=== PATIENT | female | born 1935 | race Caucasian/White ===

== ENCOUNTER 2018-03-31 04:35 | Inpatient (IN) ==
--- NOTE | 2018-03-31 05:42 | Emergency Department Note ---
Disposition Clinical Impression: Palpitations, Elevated troponin Disposition: Admitted As Inpatient Condition: Good Forms: ED Satisfaction Letter Time of Disposition: 06:51 Arrhythmia/Palpitations HPI - General Chief Complaint: ED Arrhythmia/Palpitations Stated Complaint: heart palpitations Time Seen by Provider: 03/31/18 04:46 Source: patient, family Mode of arrival: ambulatory Limitations: no limitations Nursing Notes Reviewed: Yes Vital Signs Reviewed: Yes - History of Present Illness HPI Narrative: Patient is an 83-year-old female presenting with palpitations. Patient has history of hypertension, hyperlipidemia as well as diabetes and anxiety. Per patient around 3:30 this morning, she woke up out of bed with this feeling of quivering in her chest, she states that there was pounding in the middle of her chest. She denies any pressure in her chest or difficulty breathing. She denies any lightheaded or dizziness. She immediately woke up and took her blood pressure as well as pulse, she noticed her pulse was in the 150s. This lasted until around 4:00, and resolved on its own. On arrival, she has no palpitations, no chest pain or shortness of breath. She denies any lightheaded or dizziness. She denies any history of abnormal heart rhythms. She denies symptoms like this in the past. She does have history of anxiety and has anxiety attacks at night, however this is significantly different. She also recently had a stressor as her sister a few days ago. No nausea, vomiting, fevers, chills, cough or abdominal pain, no urinary changes. - Related Data Allergies Allergy/AdvReac Type Severity Reaction Status Date / Time Amoxicillin Allergy Hives Verified 03/31/18 04:39 ampicillin Allergy Hives Verified 03/31/18 04:39 Penicillins [PCN] Allergy Hives Verified 03/31/18 04:39 sulfamethoxazole Allergy Hives Verified 03/31/18 04:39 [From Bactrim] trimethoprim [From Bactrim] Allergy Hives Verified 03/31/18 04:39 All systems ED: reviewed and negative except as stated. Review of Systems: As Per HPI Constitutional: Denies: fever, chills, weakness, weight change Eyes: Denies: eye pain, eye discharge, vision change ENT ED: Denies: ear pain, throat pain, dental pain, hearing loss, epistaxis, congestion, dysphagia Cardiovascular: Reports: palpitations. Denies: chest pain, dyspnea on exertion Respiratory: Denies: cough, dyspnea, wheezes Gastrointestinal: Denies: abdominal pain, nausea, vomiting Genitourinary: Denies: urgency, frequency Musculoskeletal: Denies: back pain Integumentary: Denies: rash Neurological: Denies: headache, weakness, confusion Psychiatric: Reports: anxiety Endocrine: Denies: fatigue Past Medical History - Past Medical History Attestation: Yes The following information was validated with the patient. Source: patient Medical history: Reports: asthma, diabetes, GERD, hypertension, thyroid disease Surgical history: Reports: hysterectomy, thyroidectomy, other Psychiatric history: Reports: anxiety - Social History Smoking Status: Never smoker Smokeless Tobacco Status: No Alcohol use: Reports: none Drug use: Reports: none Physical Exam - General Limitations: no limitations General appearance: alert, in no apparent distress - Head Head exam: atraumatic, normocephalic, normal inspection - Eye Eye exam: Present: normal appearance, PERRL, EOMI - ENT ENT exam: normal exam, normal oropharynx, mucous membranes moist - Neck Neck exam: Present: normal inspection, full ROM, trachea midline - Chest Chest inspection: Present: normal inspection, symmetric chest wall rise - Respiratory Respiratory exam: Present: normal lung sounds bilaterally - Cardiovascular Cardiovascular exam: Present: regular rate, normal rhythm, normal heart sounds - Abdominal Exam Abdominal exam: Present: soft, Non-Tender. Absent: tenderness, distention, guarding, rebound, rigidity - Extremities Exam Extremities exam: Present: normal inspection, full ROM. Absent: tenderness, pedal edema - Expanded Lower Extremity Exam Neurovascular/Tendon exam: Absent: motor deficit, sensory deficit, tendon deficit - Back Exam Back exam: Present: normal inspection, full ROM. Absent: tenderness - Neurological Exam Neurological exam: Present: alert, oriented X3 - Psychiatric Psychiatric exam: Present: normal affect, normal mood - Skin Skin exam: Present: warm, dry, intact, normal color. Absent: rash Course Vital Signs Temperature 97.7 F 03/31/18 04:37 Pulse Rate 88 03/31/18 04:37 Respiratory Rate 18 03/31/18 04:37 Blood Pressure 149/83 03/31/18 04:37 O2 Sat by Pulse Oximetry 95 03/31/18 04:37 Temperature 97.7 F 03/31/18 04:57 Pulse Rate 63 03/31/18 06:04 Respiratory Rate 16 03/31/18 06:04 Blood Pressure 141/59 03/31/18 06:04 O2 Sat by Pulse Oximetry 97 03/31/18 06:04 Oxygen Delivery Oxygen Delivery Room Air Arrhythmia/Palpitations - MDM Narrative Medical decision making narrative: Patient is an 83-year-old female presenting with palpitations. Has history of hyperlipidemia, hypertension, diabetes mellitus type 2. Prior to arrival, she had woken up from sleep with palpitations, this lasted for a total of 30 minutes, with heart rate of 150. On arrival to the ER, no symptoms currently. On examination, she is regular rate and rhythm, clear to auscultation bilaterally, completely asymptomatic. She denies any chest pain during these episodes. EKG has changes of ST segment depression in inferior lateral leads, compared to previous in 2017 inferior changes are increased with greater depression in leads II, III, and F aVF, troponin is slightly elevated 0.06. In light of this, patient will be admitted for ACS rule out. Patient agrees at this point in time for admission. Hospitalist was paged for admission at 650. Patient was signed out at 658 to day team, Dr. Harrington. - Medical Records Medical records reviewed: Yes I reviewed the patient's medical records. - Lab Data Lab results reviewed: Yes I reviewed the patient's lab results. Result diagrams: 03/31/18 06:03 Lab Results 03/31/18 Range/Units 06:03 WBC 10.4 (4.3-11.1) K/mcL RBC 4.52 (3.82-4.97) M/mcL Hgb 13.3 (11.5-15.4) g/dL Hct 41.5 (35.3-44.9) % MCV 91.8 (83.0-100.0) fL MCH 29.4 (28.0-33.3) pg MCHC 32.0 (31.6-35.5) g/dL RDW 13.1 (11.5-14.5) % Plt Count 233 (140-400) K/mcL MPV 11.4 (9.4-12.4) fL Immature Gran % 0.3 (0-4) % Seg Neutrophils % 69.4 % Lymphocytes % 17.5 % Monocytes % 9.7 % Eosinophils % 1.9 % Basophils % 1.2 % Neutrophils # 7.2 (1.6-8.9) K/mcL Lymphocytes # 1.8 (0.6-4.6) K/mcL Monocytes # 1.0 (0.0-1.3) K/mcL Eosinophils # 0.2 (0.0-0.6) K/mcL Basophils # 0.1 (0.0-0.2) K/mcL - EKG Data EKG attestation: Yes I reviewed and interpreted this EKG. EKG results narrative: EKG performed at 447 with ventricular rate of 70, regular rhythm, normal axis, ST depression in lead 2, lead 3, aVF, V2, V3, V4, V5 and V6, no ST segment elevation, T-wave inversions as well as in 2, 3, aVF as well as V3, V4, V5 and V6. In review of old EKG that was performed on 06/13/2016, there is now new ST depression in leads 2, 3 and aVF there appears to be slightly greater depression in lead V3, unchanged depression in lead V4 and V5, greater depression in V6., There is also now T-wave inversion in lead 2, lead 3 and aVF. When compared to previous EKG there are: changes noted S.B.A.R. - S.B.AMauriR. Situation: Demographics, MOA Background: Presenting Complaint, Relevant PMH, Meds, & Allergies Assessment: Vital Signs, Course and respsone to treatment, Exam Concerns, Patient/Family Expectation, Pertinant Lab Results, Outstanding Labs Recommendation: Barrier(s) to disposition, Recommendation based on pending studies, treatments, or consults S.B.A.RMauri Report Given to: Dr. Juany Sheikh Repor Time: 06:57
[2018-03-31 06:20] LABS: Basophils # 0.1 K/mcL (0.0-0.2); Basophils % 1.2 %; Eosinophils # 0.2 K/mcL (0.0-0.6); Eosinophils % 1.9 %; Hematocrit 41.5 % (35.3-44.9); Hemoglobin 13.3 g/dL (11.5-15.4); Immature Granulocytes % 0.3 % (0-4); Lymphocytes # 1.8 K/mcL (0.6-4.6); Lymphocytes % 17.5 %; Mean Corpuscular Hemoglobin 29.4 pg (28.0-33.3); Mean Corpuscular Volume 91.8 fL (83.0-100.0); Mean Platelet Volume 11.4 fL (9.4-12.4); Monocytes % 9.7 %; Neutrophils # 7.2 K/mcL (1.6-8.9); Platelet Count 233 K/mcL (140-400); Red Blood Count 4.52 M/mcL (3.82-4.97); Red Cell Distribution Width 13.1 % (11.5-14.5); Segmented Neutrophils % 69.4 %
[2018-03-31 06:40] LABS: Calcium 9.4 mg/dL (8.6-10.3); Potassium 3.3 mEq/L (3.5-5.1)
[2018-03-31 06:43] LABS: Troponin I 0.06 ng/mL (< 0.04)
[2018-03-31] MEDS ORDERED: Aspirin 325 MG TABLET PO ONE ×2 (07:01→07:12)
--- NOTE | 2018-03-31 07:03 | Emergency Department Note ---
START Narrative - START START: Agree with initial H&P per Dr. Sommers and Dr. Croft. EKG's reviewed, laboratory studies reviewed. Based on the patient's age, significant vascular comorbidities, abnormal EKG with notable changes from prior, elevated troponin and reports of dysrhythmia, I thought it would be appropriate to admit the patient to the hospital. The patient is agreeable, I discussed the case with the hospitalist on-call who recommended discussing the care with the pole classifier prior to admission. I spoke with Dr. Duque pole classifier on-call and reviewed the case, we both feel the patient would benefit from hospitalization and further evaluation. Aspirin was ordered, heparin recommended. I reconsulted with the hospitalist on-call who has acceptedthe patient to his care. The patient is currently stable pending admission
[2018-03-31 08:57] LABS: Prothrombin Time 11.6 Seconds (9.4-12.1)
[2018-03-31 09:00] LABS: Activated Partial Thrombo Time 34.6 Seconds (26.0-36.0)
[2018-03-31] MEDS ORDERED: *HR* Heparin 5,000 UNIT/ML VIAL IVP ONE ×2 (09:03→09:07)
[2018-03-31] MEDS ORDERED: *HR* Heparin 5,000 UNIT/ML VIAL IVP PRN ×2 (09:07)
[2018-03-31] MEDS ORDERED: Heparin 25,000 UNIT/500 ML D5W 25,000 UNIT/500 ML BAG IVC SCH ×2 (09:15)
--- NOTE | 2018-03-31 09:40 | Internal Med History&Physical ---
Addendum entered and electronically signed by Sherry Daniel CNP 03/31/18 10:24: CKDIII- Pt with CKDIII, pt of [facility]. Sr Cr 1.28, GFR 40. 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 Gentle IVF hydration at 75ml/hour Consider nephrology consultation if worsening condition. Original Note: Date of Encounter: 03/31/18 Time of Encounter: 08:55 Internal Medicine - H&P: HPI Chief complaint: Palpitations Admitted From: Home Plans for Post Hospital Care: Home History of present illness: Ms. 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 Pt states that she was awakened at about 0330 by palpitations and pounding in central chest. She states that she got up and took her blood pressure and her machine indicated that her pulse was 153. She states that after about 30 minutes, the symptoms resolved and she presented to the ED for evaluation. She has chronic PND and was unsure if she was having shortness of breath or if she was having worsening post nasal drip. She has denied chest pain, nausea, vomiting, or diaphoresis. Her initial troponin was elevated at 0.06 and her EKG showed new TWI. ED physician consulted cardiology who has recommended a heparin gtt and admission. Pt will be admitted to observation in stable condition. Time spent with pt approximately 20-25 minutes. Past Med Surg Social Fam HX - Past Medical History Medical history: asthma, diabetes, GERD, hypertension, thyroid disease Psychiatric history: anxiety - Past Surgical History Surgical History: hysterectomy, thyroidectomy, other Additional surgical history: *partial thyroidectomy. kidney removed - Social History Smoking Status: Never smoker Smokeless Tobacco Status: No Alcohol use: none Drug use: none Internal Medicine - H&P: Meds Allergy/AdvReac Type Severity Reaction Status Date / Time Amoxicillin Allergy Hives Verified 03/31/18 04:39 ampicillin Allergy Hives Verified 03/31/18 04:39 Penicillins [PCN] Allergy Hives Verified 03/31/18 04:39 sulfamethoxazole Allergy Hives Verified 03/31/18 04:39 [From Bactrim] trimethoprim [From Bactrim] Allergy Hives Verified 03/31/18 04:39 All Systems PM: A 10-system review of systems was performed and is negative for pertinent findings except as documented above in the HPI. - Constitutional Constitutional: no fever(s), no falls, no night sweats, no weakness - EENT Eyes: no blurry vision, no change in vision, no diplopia, no loss of peripheral vision, no loss of vision Ears: no decreased hearing, no ear pain Nose, mouth and throat: nasal congestion, post-nasal drip, no change in voice, no dental pain, no dry mouth, no hoarseness, no nasal discharge, no nasal obstruction, no sinus pain, no sinus pressure, no sore throat - Cardiovascular Cardiovascular ROS IM: dyspnea, irregular heart rhythm, palpitations, no chest pain, no diaphoresis, no dyspnea on exertion, no edema, no lightheadedness, no paroxysmal nocturnal dyspnea, no syncope - Respiratory Respiratory: no cough, no dyspnea, no hemoptysis, no dyspnea on exertion, no wheezing, no stridor, no pain on inspiration, no chest congestion, no pain with cough - Gastrointestinal Gastrointestinal: heartburn, no abdominal pain, no bloating, no change in bowel habits, no cramping, no diarrhea, no dysphagia, no loose stools, no nausea, no vomiting - Genitourinary Genitourinary: no urinary frequency, no urinary hesitancy, no urinary incontinence, no urinary urgency, no vaginal discharge - Musculoskeletal Musculoskeletal ROS IM: no atrophy, no back pain, no muscle cramps, no muscle weakness, no numbness, no tingling - Integumentary Integumentary IM: no erythema, no non-healing lesions, no rash, no sores - Neurological Neurological ROS: no abnormal gait, no abnormal hearing, no abnormal movements, no abnormal speech, no behavioral changes, no confusion, no dizziness, no headache(s), no numbness, no tingling, no vertigo, no weakness - Psychiatric Psychiatric: anxiety, no homicidal ideation, no suicidal ideation - Constitutional Vitals: Temp Pulse Resp BP Pulse Ox 97.7 F 72 16 137/61 97 03/31/18 04:57 03/31/18 08:28 03/31/18 07:37 03/31/18 08:28 03/31/18 08:28 General appearance: Present: cooperative, A&O X 3, pleasant, no acute distress, answers questions appropriately Exam: General: Pt resting quietly on bed, no distress. Skin: pwd, no rashes, lesions, redness Neurological: Pt is alert and awake, oriented x 3, Speech is clear, PERRLA, EOMI, no nystagmus, no pronator drift. strength equal x 4 extremities HEENT: mucous mumbranes moist, no conjuctival pallor Neck: supple, no tracheal deviation, no lymphadenopathy, tenderness, no thyromegaly Heart: S1S2 heard without gallops, clicks, murmurs, no bradycardia or tachycardia, pt has no peripheral edema, pedal and radial pulses palpable bilaterally. Lungs: clear throughout without wheezing, rales, or ronchi, respirations are unlabored Abdomen: soft and non tender with bowel sound present, no hepatomegaly. Psych: Normal affect with good eye contact - Head Head exam: Present: atraumatic, normal inspection, normocephalic - Eye Eye exam: Present: EOMI, normal appearance, PERRL. Absent: nystagmus - ENT ENT exam: Present: mucous membranes moist, normal exam, normal external ear exam - Neck Neck exam general surgery: Present: full ROM, normal inspection. Absent: lymphadenopathy, tenderness, nuchal rigidity - Respiratory Respiratory exam: Present: chest wall tenderness, decreased breath sounds, CTAB, rales. Absent: respiratory distress, rhonchi, stridor, wheezes, tachypnea - Cardiovascular Cardiovascular exam: Present: RRR, +S1, +S2. Absent: diastolic murmur, gallop, irregular rhythm, systolic murmur, tachycardia - GI/Abdominal GI/Abdominal exam: Present: normal bowel sounds, soft. Absent: hepatomegaly, tenderness - Extremities Exam Extremities exam: Present: full ROM, normal capillary refill, normal inspection, warm, radial pulses palpable and symmetrical. Absent: pedal edema, tenderness - Neurological Exam Neurological exam: Present: alert, oriented X3, strengths equal and symetr throughout. Absent: pronater drift, facial droop, speech deficit - Skin Skin exam: Present: dry, intact, normal color, warm. Absent: diaphoretic, pallor, rash Internal Med - H&P Results - Labs CBC & Chem 7: 03/31/18 06:03 03/31/18 06:03 Labs: Short CBC 03/31/18 Range/Units 06:03 WBC 10.4 (4.3-11.1) K/mcL Hgb 13.3 (11.5-15.4) g/dL Hct 41.5 (35.3-44.9) % Plt Count 233 (140-400) K/mcL Neutrophils # 7.2 (1.6-8.9) K/mcL BMP 03/31/18 06:03 Sodium 139 Potassium 3.3 L Chloride 103 Carbon Dioxide 27 BUN 25 H Creatinine 1.28 H Glucose 190 H Calcium 9.4 Cardiac Enzymes 03/31/18 Range/Units 06:03 Troponin I 0.06 H* (< 0.04) ng/mL - Assessment and plan (1) Palpitations Current Visit: Yes Status: Acute Assessment and plan: Pt with palpitations that awakened her during the night, resolved spontaneously. Pt denies chest pain, diaphoresis, nausea, or vomiting. She reports chronic, constant post nasal drip, so she was unsure if she had increased shortness of breath. Pt denies knowledge of prior history of a-fib. Takes diltiazem and BB. EKG in ER showed new TWI, initial troponin elevated 0.06. ED consulted cardiology, pt will be admitted Heparin gtt Cardiology consultation EKG in a.m. Trend troponins Telemetry Continue BB and Diltiazem (2) GERD (gastroesophageal reflux disease) Current Visit: Yes Status: Chronic Assessment and plan: Continue home dose of Ranitidine Qualifiers: Esophagitis presence: esophagitis presence not specified Qualified Code(s): K21.9 - Gastro-esophageal reflux disease without esophagitis (3) HTN (hypertension) Current Visit: Yes Status: Chronic Assessment and plan: Continue home medications Vitals per admission orders Hydralazine 10mg IVP prn HTN Qualifiers: Hypertension type: essential hypertension Qualified Code(s): I10 - Essential (primary) hypertension (4) HLD (hyperlipidemia) Current Visit: Yes Status: Chronic Assessment and plan: Pt recently started taking Pravastatin again. Continue home dose Labs drawn in 12/10 Qualifiers: Hyperlipidemia type: unspecified Qualified Code(s): E78.5 - Hyperlipidemia, unspecified (5) Anxiety Current Visit: Yes Status: Chronic Assessment and plan: Pt reports chronic, intermittent anxiety. Takes prn medications at home, will restart prn when home med list verified. (6) Hypothyroid Current Visit: Yes Status: Chronic Assessment and plan: Pt had partial thyroidectomy. Continue home dose of levothyroxine. THS normal 12/10. Qualifiers: Hypothyroidism type: unspecified Qualified Code(s): E03.9 - Hypothyroidism, unspecified (7) Diabetes type 2, controlled Current Visit: Yes Status: Acute Assessment and plan: Pt states that she does not take oral or injectable medications, does not reg ularly check blood glucose levels. No baseline A1c available, will check in the a.m. Diabetic, cardiac diet SSI Accucheck achs Hypoglycemia protocol Qualifiers: Diabetes mellitus superintendent terminal insulin use: without fdc use Diabetes mellitus complication status: without complication Qualified Code(s): E11.9 - Type 2 diabetes mellitus without complications (8) Elevated troponin Current Visit: Yes Status: Acute Assessment and plan: Initial troponin elevated after episode of palpitations, likely paroxysmal a- fib. Pt denies having a-fib in the past, no prior symptoms similar to this Elevation can be due to CKD III with LAUREL as well as from demand ischemia, will trend Cardiology consulted Plan as above. - Time Spent With Patient Total time spent is greater than 50% in coordination of care (as documented) at patient's floor/unit and/or counseling patient: 25 - 35 minutes
[2018-03-31] MEDS ORDERED: Acetaminophen 325 MG TABLET PO PRN (10:16)
[2018-03-31] MEDS ORDERED: Naloxone 0.4 MG/ML INJ IVP PRN (10:16)
[2018-03-31] MEDS ORDERED: Dextrose Gel 15 GM/37.5 ML TUBE PO PRN ×2 (10:16)
[2018-03-31] MEDS ORDERED: *HR* Dextrose 50 % in Water (Syg) 50 ML SYRINGE IVP PRN (10:16)
[2018-03-31] MEDS ORDERED: D5% in Water 1,000 ML IVC PRN (10:16)
[2018-03-31] MEDS ORDERED: 0.9 % Sodium Chloride 1,000 ML IVC SCH (10:30)
[2018-03-31 11:02] LABS: Estimated Average Glucose 151 mg/dl; Hemoglobin A1C 6.9 %
[2018-03-31] MEDS: Insulin LISPRO 300 UNITS/3 ML VIAL SQ SCH ×2 (11:39→16:39)
--- NOTE | 2018-03-31 14:22 | Cardiology Consult Note ---
<Nicholas Page R - Last Filed: 03/31/18 14:19> Date of Encounter: 03/31/18 Time of Encounter: 14:20 Assessment and Plan (1) Palpitations Current Visit: Yes Status: Acute Pt presented with palpitations that woke her at 0330, lasted approximately 30 minutes. Pt reports HR 153 on BP machine. Resolved in transit to ED. Holter 05/2016 showed short infrequent runs of SVT. ECG sinus rhythm. Continue telemetry while inpt. If no arrhythmias/tachycardia noted inpt, will plan to send home with holter or event monitor. K 3.3, replace. Check Mag and TSH. TTE to evaluate structure and function. (2) Elevated troponin Current Visit: Yes Status: Acute Troponin 0.06, 0.12 in setting of reported tachycardia HR 150s at home. Suspect demand ischemia. Nondiagnostic for ACS. Trend for total of 3. On heparin gtt for now. Will continue. ECG with T wave inversions diffusely. This is unchanged from prior ECG 05/2016. Risk factors for CAD include HTN, HLD, DMII. TTE to evaluate structure and function. Further recs pending echo results and troponin trend. (3) HTN (hypertension) Current Visit: Yes Status: Chronic Currently hypertensive. Management per primary team. Qualifiers: Hypertension type: essential hypertension Qualified Code(s): I10 - Essenti al (primary) hypertension Discussion w patient/family: The assessment and plan as outlined above was discussed with the patient and/or family members who expressed understanding and agreement. All questions were answered. Thank you for involving us in the care of your patient. Please call with any questions. I will discuss all the above with Dr. Duque and make changes as necessary. History of Present Illness Consult date: 03/31/18 Requesting physician: Sherry Daniel Consult reason: elevated troponin Chief complaint: palpitations History of present illness: Ms. 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 Pt states that she was awakened at about 0330 by palpitations and pounding in central chest. She states that she got up and took her blood pressure and her her pulse was 153. She states that after about 30 minutes, in transit to the ED, symptoms resolved. Reports she had mild upper best burning that felt like reflux and was brief in duration. Troponins 0.06, 0.12. EKG with T wave inversions, unchanged from 05/2016 EKG. On heparin gtt. Cardiology consulted for further recs. Prior CV testing: Holter 06/17/16: Baseline rhythm is sinus. There are ST-T abnormalities throughout without change. Occasional supraventricular ectopy. Short, infrequent runs of SVT. Rare ventricular ectopy. Diary was not returned. Past Med Surg Social Fam HX - Past Medical History Medical history: asthma, diabetes, GERD, hypertension, thyroid disease Psychiatric history: anxiety - Past Surgical History Surgical History: hysterectomy, thyroidectomy, other Additional surgical history: *partial thyroidectomy. kidney removed - Social History Smoking Status: Never smoker Smokeless Tobacco Status: No Alcohol use: none Drug use: none Medications and Allergies Allergy/AdvReac Type Severity Reaction Status Date / Time Amoxicillin Allergy Hives Verified 03/31/18 04:39 ampicillin Allergy Hives Verified 03/31/18 04:39 Penicillins [PCN] Allergy Hives Verified 03/31/18 04:39 sulfamethoxazole Allergy Hives Verified 03/31/18 04:39 [From Bactrim] trimethoprim [From Bactrim] Allergy Hives Verified 03/31/18 04:39 All Systems Review: The remainder of the systems were reviewed and are negative - Cardiovascular Cardiovascular: as per HPI, chest pain at rest, palpitations Physical Examination Vital Signs, Last 4 Hours Temp Pulse Resp BP Pulse Ox 03/31/18 12:21 98.5 F 63 17 166/72 97 03/31/18 10:27 97 Vital Signs Temp Pulse Resp BP Pulse Ox 03/31/18 12:21 98.5 F 63 17 166/72 97 03/31/18 10:27 97 03/31/18 10:03 98.5 F 83 18 155/83 97 03/31/18 09:54 98.4 F 80 17 171/75 94 03/31/18 08:28 72 137/61 97 03/31/18 07:37 70 16 143/76 96 03/31/18 06:04 63 16 141/59 97 03/31/18 04:57 97.7 F 88 18 149/83 95 03/31/18 04:37 97.7 F 88 18 149/83 95 Intake and Output 03/30/18 03/31/18 03/31/18 23:59 07:59 15:59 Intake Total 240 / 240 Balance 240 / 240 Intake: Oral 240 / 240 Other: Meal Lunch Percent of Meal Consumed 100% Weight 78.925 kg Blood Glucose* 122 Patient Weight 03/31/18 23:59 Weight 78.925 kg General: Conversant, No Apparent Distress HEENT: Atraumatic, Normocephaly, Mucus Membranes Moist Neck: No JVD, Normal carotid pulses Cardiac: Reg Rate and Rhythm, Normal S1 and S2, No Murmur Lungs: Normal Breath Sounds, No Wheeze, Rales, Rhonchi Neuro: Alert and responsive, No focal deficits noted Abdomen: Soft, Non-Tender Skin: No rashes noted on visualized skin Musculoskeletal: No Chest Wall Tenderness Extremities: No Clubbing, No Cyanosis, No Edema, Normal Pulses Results 03/31/18 06:03 03/31/18 06:03 Lab Results 03/31/18 03/31/18 03/31/18 06:03 06:03 08:29 WBC 10.4 Hgb 13.3 Hct 41.5 Plt Count 233 INR 1.0 APTT 34.6 Sodium 139 Potassium 3.3 L Chloride 103 Carbon Dioxide 27 BUN 25 H Creatinine 1.28 H Glucose 190 H Calcium 9.4 Troponin I 0.06 H* 03/31/18 10:39 WBC Hgb Hct Plt Count INR APTT Sodium Potassium Chloride Carbon Dioxide BUN Creatinine Glucose Calcium Troponin I 0.12 H* Short CBC 03/31/18 Range/Units 06:03 WBC 10.4 (4.3-11.1) K/mcL Hgb 13.3 (11.5-15.4) g/dL Hct 41.5 (35.3-44.9) % Plt Count 233 (140-400) K/mcL Neutrophils # 7.2 (1.6-8.9) K/mcL BMP 03/31/18 Range/Units 06:03 Sodium 139 (136-145) mEq/L Potassium 3.3 L (3.5-5.1) mEq/L Chloride 103 (98-107) mEq/L Carbon Dioxide 27 (23-29) mEq/L BUN 25 H (8-23) mg/dL Creatinine 1.28 H (0.60-1.20) mg/dL Glucose 190 H (70-105) mg/dL Calcium 9.4 (8.6-10.3) mg/dL Cardiac Enzymes 03/31/18 03/31/18 Range/Units 10:39 06:03 Troponin I 0.12 H* 0.06 H* (< 0.04) ng/mL Active Medications Acetaminophen (Tylenol) 650 mg PO Q6HR PRN PRN Reason: Mild Pain/Fever Stop: 09/30/18 10:17 Dextrose/Water (Dextrose 50% (Syg)) 25 ml IVP AD PRN PRN Reason: Hypoglycemia Stop: 09/30/18 10:17 Glucagon (Glucagen) 1 mg IM ONCE PRN PRN Reason: Hypoglycemia Stop: 09/30/18 10:17 Glucose (Gluctose) 15 gm PO ONCE PRN PRN Reason: Hypoglycemia Stop: 09/30/18 10:17 Glucose (Gluctose) 30 gm PO ONCE PRN PRN Reason: Hypoglycemia Stop: 09/30/18 10:17 Heparin Sodium (Porcine) (Heparin) 4,000 unit IVP Q6HR PRN PRN Reason: SEE COMMENTS Stop: 09/30/18 09:08 Heparin Sodium (Porcine) (Heparin) 2,000 unit IVP Q6H PRN PRN Reason: SEE COMMENTS Stop: 09/30/18 09:08 Hydralazine HCl (Hydralazine) 10 mg IVP Q6HR PRN PRN Reason: Hypertension Stop: 09/30/18 11:55 Heparin Sodium/Dextrose (Heparin 25,000 Unit/500 Ml D5w) 25,000 unit in 500 mls @ 18.942 mls/hr IVC .Q24H [facility]; Protocol Stop: 09/30/18 09:16 Last Admin: 03/31/18 11:23 Dose: 12 unit/kg/hr, 18.942 mls/hr Sodium Chloride (0.9 % Sodium Chloride) 1,000 mls @ 75 mls/hr IVC .[id number] [facility] Stop: 03/31/18 18:31 Last Admin: 03/31/18 11:24 Dose: 75 mls/hr Dextrose (Dextrose 5%) 1,000 mls @ 100 mls/hr IVC .Q10H PRN PRN Reason: HYPOGLYCEMIA Stop: 09/30/18 10:17 Insulin Human Lispro (Humalog) 0 units SQ TIDAC PARESH; Protocol Stop: 09/30/18 11:31 Last Admin: 03/31/18 11:39 Dose: Not Given Naloxone HCl (Narcan) 0.4 mg IVP Q2MIN PRN PRN Reason: SEE COMMENTS Stop: 09/30/18 10:17 - Imaging and Cardiology Holter: report reviewed - EKG Interpretation EKG results cardiology: personally reviewed (ST, T wave inversions) Consult Discharge Plan - Plan Referrals: Tone Sosa MD [Primary Care Provider] - <Sinai Duque - Last Filed: 03/31/18 17:35> Date of Encounter: 03/31/18 - Attending Attestation I examined this patient and my medical decision-making was reviewed with the HEEL TRIMMER. I agree with the documented findings, disposition and treatment plan as described. Presents with palpitations that resolved prior to admission. Denies chest pain. Patient presently asymptomatic. Recommend trend troponin and check echo. ECG no acute findings. Inpatient telemetry. Patient interested in going to her sister's tomorrow at noon. Further recommendations tomorrow morning pending overnight telemetry, echo and re-evaluation of symptoms. Assessment and Plan Discussion w patient/family: The assessment and plan as outlined above was discussed with the patient and/or family members who expressed understanding and agreement. All questions were answered. Thank you for involving us in the care of your patient. Please call with any questions. History of Present Illness History of present illness: Ms. Chong is a 83 year old female All Systems Review: The remainder of the systems were reviewed and are negative Results 03/31/18 06:03 03/31/18 06:03 Lab Results 03/31/18 03/31/18 03/31/18 06:03 06:03 08:29 WBC 10.4 Hgb 13.3 Hct 41.5 Plt Count 233 INR 1.0 APTT 34.6 Sodium 139 Potassium 3.3 L Chloride 103 Carbon Dioxide 27 BUN 25 H Creatinine 1.28 H Glucose 190 H Calcium 9.4 Troponin I 0.06 H* 03/31/18 03/31/18 10:39 16:29 WBC Hgb Hct Plt Count INR APTT Sodium Potassium Chloride Carbon Dioxide BUN Creatinine Glucose Calcium Troponin I 0.12 H* 0.10 H*
--- NOTE | 2018-03-31 23:46 | Electrocardiograph Report ---
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
[2018-04-01 06:39] LABS: Basophils # 0.1 K/mcL (0.0-0.2); Basophils % 1.1 %; Eosinophils # 0.3 K/mcL (0.0-0.6); Hematocrit 40.2 % (35.3-44.9); Immature Granulocytes % 0.2 % (0-4); Lymphocytes # 2.7 K/mcL (0.6-4.6); Lymphocytes % 29.5 %; Mean Corpuscular HGB Conc 32.3 g/dL (31.6-35.5); Mean Corpuscular Hemoglobin 29.6 pg (28.0-33.3); Mean Corpuscular Volume 91.6 fL (83.0-100.0); Mean Platelet Volume 11.6 fL (9.4-12.4); Monocytes # 0.9 K/mcL (0.0-1.3); Monocytes % 9.7 %; Neutrophils # 5.1 K/mcL (1.6-8.9); Platelet Count 235 K/mcL (140-400); Red Blood Count 4.39 M/mcL (3.82-4.97); Red Cell Distribution Width 13.3 % (11.5-14.5); Segmented Neutrophils % 56.5 %
[2018-04-01 06:44] LABS: INR 1.1; Prothrombin Time 12.4 Seconds (9.4-12.1)
[2018-04-01 07:01] LABS: BUN/Creatinine Ratio 17 (6-26); Blood Urea Nitrogen 16 mg/dL (8-23); Calcium 8.8 mg/dL (8.6-10.3); Carbon Dioxide 26 mEq/L (23-29); Chloride 106 mEq/L (98-107); Glucose 144 mg/dL (70-105); Magnesium 1.8 mg/dL (1.6-2.6); Osmolality,Calculated 294 (280-300); Potassium 3.3 mEq/L (3.5-5.1); Sodium 140 mEq/L (136-145); eGFR For Non-African Americans 58 (> 60)
[2018-04-01 07:05] LABS: Activated Partial Thrombo Time 102.1 Seconds (26.0-36.0)
[2018-04-01 08:23] VITALS: BP 169/90
[2018-04-01] MEDS: Insulin LISPRO 300 UNITS/3 ML VIAL SQ SCH (08:54)
[2018-04-01] MEDS ORDERED: Metoprolol XL (24 HR) Succ 25 MG TAB.ER.24H PO SCH (09:00)
[2018-04-01] MEDS ORDERED: Aspirin Enteric Coated 81 MG Tablet PO SCH (09:00)
[2018-04-01] MEDS ORDERED: Diltiazem CD (24hr) 120 MG CAPSULE PO SCH (09:00)
--- NOTE | 2018-04-01 10:10 | Discharge Summary ---
Orders not resulted at time of discharge: Pending orders 04/01/18 06:00 ECG 12 lead ECG [ECG] AM 0600 04/01/18 08:02 Thyroid Stimulating Hormone Routine Thyroxine (T4) Free Routine 04/01/18 09:47 ECG 48 holter monitor setup [ECG] Stat 04/02/18 01:20 Heparin anti-factor XA UFH [COAG] Timed Date of Encounter: 04/01/18 Time of Encounter: 10:29 - Discharge Diagnosis (1) Palpitations Priority: Primary Status: Acute (2) Elevated troponin Priority: Secondary Status: Acute (3) HTN (hypertension) Priority: Secondary Status: Chronic Qualifiers: Hypertension type: essential hypertension Qualified Code(s): I10 - Essential (primary) hypertension - Hospital Course Hospital course: Ms. Chong is a 83 year old female with PMH of HTN, HLD, DMII, GERD, anxiety, hyperlipidemia, CKDIII, nephrectomy presented 2/ after she was awakened by palpitations. She took her BP and HR was 153. After 30 minutes, in transit to the ED, symptoms resolved. ECG showed sinus rhythm on arrival. Diffuse T wave inversions, unchanged from prior ECG 05/2016. Holter 05/2016 showed short infrequent runs of SVT. K 3.3, replaced this AM. No events on tele overnight--maintaining SR. Troponins 0.06, 0.12, 0.10--likely demand ischemia. TTE resulted--LVEF 60%. Mild cLVH. Moderately dilated left atrium. No significant valvular dysfunction. Continue home BB and CCB. D/C home in stable condition on 48 hr holter monitor. Will coordinate outpt cardiology follow-up in 2-3 weeks. Time spent discussing smoking cessation with patient: 3 to 10 minutes - Time Spent with Patient Total time spent providing and/or coordinating discharge services: - Discharge Medications Home Medications: Aspirin [Adult Aspirin] 81 mg PO DAILY 03/31/18 [History] Calcium Carbonate/Vitamin D3 [Caltrate 600 + D Soft Chew Tab] 1 each PO DAILY 03/31/18 [History] Cholecalciferol (D-3) [Vitamin D] 1,000 unit PO DAILY 03/31/18 [History] Diltiazem CD (24hr) [Cardizem CD] 120 mg PO DAILY 03/31/18 [History] Fluticasone Propionate Nasal [Flonase] 100 mcg NS DAILY 03/31/18 [History] Levothyroxine [Synthroid] 75 mcg PO MOTUWETHFRSA@0630 03/31/18 [History] Levothyroxine [Synthroid] 112.5 mcg PO REILLY@0630 03/31/18 [History] Losartan [Cozaar] 50 mg PO DAILY 03/31/18 [History] Metoprolol [Lopressor] 50 mg PO BID 03/31/18 [History] Multivitamin [Daily Multiple Vitamin] 1 tab PO DAILY 03/31/18 [History] Pravastatin Sodium [Pravachol] 40 mg PO HS 03/31/18 [History] Ranitidine HCl [Acid Life Skills Coordinator] 150 mg PO BID 03/31/18 [History] Red Yeast Rice 600 mg PO DAILY 03/31/18 [History] Triamterene/HCTZ 37.5/25mg [Dyazide] 1 tab PO DAILY 03/31/18 [History] Vit C/E/Zn/Coppr/Lutein/Zeaxan [Preservision Areds 2 Softgel] 1 cap PO DAILY 03/31/18 [History] diazePAM [Valium] 5 mg PO DAILY PRN 03/31/18 [History] Allergies/Adverse Reactions: Allergy/AdvReac Type Severity Reaction Status Date / Time Amoxicillin Allergy Hives Verified 03/31/18 04:39 ampicillin Allergy Hives Verified 03/31/18 04:39 Penicillins [PCN] Allergy Hives Verified 03/31/18 04:39 sulfamethoxazole Allergy Hives Verified 03/31/18 04:39 [From Bactrim] trimethoprim [From Bactrim] Allergy Hives Verified 03/31/18 04:39 Date of admission: 03/31/18 09:08 Primary care physician: Tone Sosa MD Consults: 03/31/18 10:23 Consult to Cardiology [CONS] Routine Comment: Consulting Provider: [facility] [place] Reason for Consult: Paroxysmal a-fib, palpitations, elevated trop ER spoke with Dr Duque Call Completed: Yes Discharging clinician: iNcholas Page Anticipated date of discharge: 04/01/18 Physical Examination Vital Signs, Last 4 Hours Temp Pulse Resp BP Pulse Ox 04/01/18 08:18 98 F 81 20 169/90 94 Vital Signs Temp Pulse Resp BP Pulse Ox 04/01/18 08:18 98 F 81 20 169/90 94 04/01/18 04:28 98.0 F 68 16 130/71 95 03/31/18 23:11 98.5 F 66 15 113/44 89 03/31/18 12:21 98.5 F 63 17 166/72 97 Intake and Output 03/31/18 04/01/18 04/01/18 23:59 07:59 15:59 Intake Total 115 / 115 143 / 143 Balance 115 / 115 143 / 143 Intake: IV Fluids 115 / 115 143 / 143 Heparin 25,000 UNIT/500 ML D5W 115 / 115 143 / 143 25,000 unit In 500 ml @ 12 UNIT /KG/HR 18.942 mls/hr IVC .Q24H [facility] Rx#:[id number] General: Conversant, No Apparent Distress HEENT: Atraumatic, Normocephaly, Mucus Membranes Moist Neck: No JVD, Normal carotid pulses Cardiac: Reg Rate and Rhythm, Normal S1 and S2, No Murmur Lungs: Normal Breath Sounds, No Wheeze, Rales, Rhonchi Neuro: Alert and responsive, No focal deficits noted Abdomen: Soft, Non-Tender Skin: No rashes noted on visualized skin Musculoskeletal: No Chest Wall Tenderness Extremities: No Clubbing, No Cyanosis, No Edema, Normal Pulses - Patient Status Disposition: Home, Self-Care Condition: Good Functional capacity at discharge: independent ambulation Overall status at discharge: patient is back to baseline - Discharge Instructions Follow Up With: Tone Sosa MD [Primary Care Provider] - 04/07/18 2:15 pm (Please follow up as schedule...) - Diet and Activity Activity: increase activity as tolerated Diet: advance to your usual diet
--- NOTE | 2018-04-01 12:35 | Event Note ---
Date of Encounter: 04/01/18 Time of Encounter: 12:30 S: Pt seen and examined this morning. In good condition. No more episodes of palpitations which brought patient to ED. 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 O: HR stable in 70s RRR lungs clear no pedal edema TTE w LAE but otherwise unremarkable Tele without any events overnight A: pt likely had tachyarrhythmia and with LAE raises concern for A-Fib P: pt stable for d/c 48h holter monitor with cardiology follow up continue home CCB and BB return precautions discussed
== END 2018-04-01 11:56 | disposition home or self-care (01) | DRG 309 ==
LOC: 2SOUTHHOLD 04:35 → EMEROOARM 04:35 → SUATTDRO 09:08 → 2SOUTHHOLD 09:36 → 2ANU 14:28
PROVIDERS: ADMIT Student in an Organized Health Care Education/Training Program; ATTEND Internal Medicine

== ENCOUNTER 2020-07-27 16:28 | Observation (INO) ==
[2020-07-27 17:35] LABS: Hematocrit 42.7 % (35.3-44.9); Hemoglobin 13.9 g/dL (11.5-15.4); Mean Corpuscular HGB Conc 32.6 g/dL (31.6-35.5); Mean Corpuscular Hemoglobin 30.2 pg (28.0-33.3); Mean Corpuscular Volume 92.8 fL (83.0-100.0); Mean Platelet Volume 11.5 fL (9.4-12.4); Platelet Count 227 K/mcL (140-400); Red Cell Distribution Width 13.4 % (11.5-14.5); White Blood Count 10.7 K/mcL (4.3-11.1)
[2020-07-27 17:59] LABS: BUN/Creatinine Ratio 19 (6-26); Blood Urea Nitrogen 22 mg/dL (8-23); Calcium 9.2 mg/dL (8.6-10.3); Carbon Dioxide 30 mEq/L (23-29); Chloride 102 mEq/L (98-107); Glucose 187 mg/dL (70-105); Osmolality,Calculated 294 (280-300); Sodium 138 mEq/L (136-145); Troponin I < 0.03 ng/mL (< 0.04); eGFR For African Americans 53 (> 60); eGFR For Non-African Americans 44 (> 60)
[2020-07-27] MEDS ORDERED: Isovue-370 500 ML BOTTLE IVP ONE (21:16)
[2020-07-27] MEDS ORDERED: Acetaminophen 325 MG TABLET PO PRN (21:34)
[2020-07-27] MEDS ORDERED: Ondansetron 4 MG/2 ML VIAL IVP PRN (21:34)
[2020-07-27] MEDS ORDERED: Naloxone 0.4 MG/ML INJ IVP PRN (21:34)
[2020-07-27 22:15] LABS: Bilirubin,Urine Negative (Negative); Blood,Urine Negative (Negative); Clarity,Urine Clear (Clear); Color,Urine Colorless (Yellow); Glucose,Urine (UA) Normal (Normal); Ketones,Urine Negative (Negative); Leukocyte Esterase,Urine Negative (Negative); Nitrite,Urine Negative (Negative); PH,Urine 6.5 pH Units (5.0-8.0); Protein,Urine Negative (Neg-Trace); Specific Gravity,Urine 1.011 (1.010-1.025); Urobilinogen,Urine Normal (Normal)
[2020-07-27] MEDS ORDERED: *HR* Dextrose 50 % in Water (Vial) 50 ML VIAL IVP PRN (23:27)
[2020-07-27] MEDS ORDERED: D5% in Water 1,000 ML IVC PRN (23:27)
[2020-07-27] MEDS ORDERED: Dextrose Gel 15 GM/37.5 ML TUBE PO PRN ×2 (23:27)
[2020-07-27] MEDS ORDERED: Perflutren Lipid Microsphere 1.3 ML in 0.9 % Sodium Chloride 8.7 ML IVP PRN (23:30)
[2020-07-28] MEDS: Insulin LISPRO 300 UNITS/3 ML VIAL SUBQ SCH ×4 (00:31→17:28)
[2020-07-28 01:42] LABS: Basophils # 0.1 K/mcL (0.0-0.2); Basophils % 1.2 %; Eosinophils # 0.3 K/mcL (0.0-0.6); Eosinophils % 2.8 %; Hematocrit 40.7 % (35.3-44.9); Immature Granulocytes % 0.4 % (0-4); Lymphocytes # 2.8 K/mcL (0.6-4.6); Lymphocytes % 26.3 %; Mean Corpuscular HGB Conc 31.9 g/dL (31.6-35.5); Mean Corpuscular Hemoglobin 29.5 pg (28.0-33.3); Mean Corpuscular Volume 92.5 fL (83.0-100.0); Mean Platelet Volume 11.4 fL (9.4-12.4); Monocytes # 1.1 K/mcL (0.0-1.3); Monocytes % 10.7 %; Neutrophils # 6.1 K/mcL (1.6-8.9); Platelet Count 216 K/mcL (140-400); Red Cell Distribution Width 13.4 % (11.5-14.5); Segmented Neutrophils % 58.6 %; White Blood Count 10.5 K/mcL (4.3-11.1)
[2020-07-28 01:55] LABS: INR 1.1; Prothrombin Time 12.3 Seconds (9.4-12.1)
[2020-07-28 02:07] LABS: Alanine Aminotransferase 10 Units/L (7-52); Albumin 3.6 g/dL (3.5-5.7); Albumin/Globulin Ratio 1.2 (1.1-2.2); Alkaline Phosphatase 52 Units/L (34-104); Aspartate Amino Transferase 15 Units/L (13-39); BUN/Creatinine Ratio 21 (6-26); Bilirubin,Total 0.5 mg/dL (0.3-1.0); Blood Urea Nitrogen 21 mg/dL (8-23); Carbon Dioxide 28 mEq/L (23-29); Chloride 104 mEq/L (98-107); Chol/HDL Ratio 4.1 (0-4.9); Cholesterol 173 mg/dL (< 200); Glucose 124 mg/dL (70-105); HDL Cholesterol 42 mg/dL (40-59); LDL Cholesterol,Calculated 111 mg/dL (< 100); Magnesium 1.9 mg/dL (1.6-2.6); Osmolality,Calculated 290 (280-300); Potassium 3.9 mEq/L (3.5-5.1); Sodium 138 mEq/L (136-145); Total Protein 6.6 g/dL (6.4-8.9); Triglycerides 99 mg/dL (< 150); eGFR For African Americans > 60 (> 60); eGFR For Non-African Americans 52 (> 60)
[2020-07-28 02:19] LABS: Thyroid Stimulating Hormone 1.272 mcIU/mL (0.340-5.600)
[2020-07-28 02:32] LABS: Folate > 22.3 ng/mL (3.0-16.0); Vitamin B12 519 pg/mL (250-1100)
[2020-07-28] MEDS: diazePAM 5 MG TABLET PO PRN (08:23)
[2020-07-28] MEDS ORDERED: Aspirin Enteric Coated 81 MG Tablet PO SCH (09:00)
[2020-07-28] MEDS: Loratadine 10 MG TABLET PO SCH (09:35)
[2020-07-28] MEDS: Metoprolol XL (24 HR) Succ 25 MG TAB.ER.24H PO SCH ×2 (09:35→21:56)
[2020-07-28] MEDS: DilTIAZem CD (24hr) 120 MG CAP.ER.24H PO SCH (09:36)
[2020-07-28 12:20] LABS: Estimated Average Glucose 137 mg/dl; Hemoglobin A1C 6.4 %
[2020-07-28] MEDS ORDERED: Insulin LISPRO 300 UNITS/3 ML VIAL SUBQ SCH (21:00)
[2020-07-28] MEDS ORDERED: *HR* Metoprolol 5 MG/5 ML VIAL IVP ONE ×2 (22:21→23:40)
[2020-07-28] MEDS ORDERED: *HR* Heparin 5,000 UNIT/ML VIAL IVP PRN ×2 (22:49)
[2020-07-28] MEDS ORDERED: *HR* Heparin 5,000 UNIT/ML VIAL IVP ONE (22:49)
[2020-07-28] MEDS ORDERED: Perflutren Lipid Microsphere 1.3 ML in 0.9 % Sodium Chloride 8.7 ML IVP PRN (22:50)
[2020-07-28] MEDS: Heparin 25,000UNIT/250ML 1/2NS 25,000 UNIT/250 ML IV.SOLN IVC SCH (23:13)
[2020-07-28 23:34] LABS: Hematocrit 45.3 % (35.3-44.9); Hemoglobin 14.4 g/dL (11.5-15.4); Mean Corpuscular HGB Conc 31.8 g/dL (31.6-35.5); Mean Corpuscular Hemoglobin 29.4 pg (28.0-33.3); Mean Corpuscular Volume 92.6 fL (83.0-100.0); Mean Platelet Volume 11.3 fL (9.4-12.4); Platelet Count 235 K/mcL (140-400); Red Blood Count 4.89 M/mcL (3.82-4.97); Red Cell Distribution Width 13.4 % (11.5-14.5); White Blood Count 11.5 K/mcL (4.3-11.1)
[2020-07-28 23:39] LABS: Heparin anti-factor XA UFH 0.04 IU/mL (0.30-0.70); Prothrombin Time 11.6 Seconds (9.4-12.1)
[2020-07-29] MEDS: Metoprolol XL (24 HR) Succ 25 MG TAB.ER.24H PO SCH (08:21)
[2020-07-29] MEDS: DilTIAZem CD (24hr) 120 MG CAP.ER.24H PO SCH ×2 (08:21→20:01)
[2020-07-29] MEDS: Loratadine 10 MG TABLET PO SCH (08:21)
[2020-07-29] MEDS: Aspirin Enteric Coated 325 MG Tablet PO SCH (08:21)
[2020-07-29] MEDS: Insulin LISPRO 300 UNITS/3 ML VIAL SUBQ SCH ×2 (08:22→11:16)
[2020-07-30] MEDS: diazePAM 5 MG TABLET PO PRN (00:26)
[2020-07-30] MEDS: Heparin 25,000UNIT/250ML 1/2NS 25,000 UNIT/250 ML IV.SOLN IVC SCH ×2 (04:53→06:52)
[2020-07-30] MEDS ORDERED: *HR* Metoprolol 5 MG/5 ML VIAL IVP ONE (06:27)
[2020-07-30] MEDS: Aspirin Enteric Coated 325 MG Tablet PO SCH (07:26)
[2020-07-30] MEDS: DilTIAZem CD (24hr) 120 MG CAP.ER.24H PO SCH ×2 (07:26→21:27)
[2020-07-30] MEDS: Loratadine 10 MG TABLET PO SCH (07:26)
[2020-07-30 13:44] LABS: Calcium 8.8 mg/dL (8.6-10.3); Potassium 3.8 mEq/L (3.5-5.1)
[2020-07-31 02:10] LABS: Calcium 8.5 mg/dL (8.6-10.3); Potassium 3.7 mEq/L (3.5-5.1)
[2020-07-31] MEDS ORDERED: 0.9 % Sodium Chloride 500 ML IVC SCH (07:30)
[2020-07-31] MEDS: Loratadine 10 MG TABLET PO SCH (09:07)
[2020-07-31] MEDS: Aspirin Enteric Coated 325 MG Tablet PO SCH (09:07)
[2020-07-31] MEDS: DilTIAZem CD (24hr) 120 MG CAP.ER.24H PO SCH ×2 (09:07→21:11)
[2020-07-31] MEDS ORDERED: 0.9 % Sodium Chloride 1,000 ML IVC SCH (11:45)
[2020-08-01 06:17] VITALS: BP 110/66
[2020-08-01 06:25] LABS: Calcium 8.6 mg/dL (8.6-10.3); Potassium 3.9 mEq/L (3.5-5.1)
[2020-08-01] MEDS: Loratadine 10 MG TABLET PO SCH (07:32)
[2020-08-01] MEDS: DilTIAZem CD (24hr) 120 MG CAP.ER.24H PO SCH (07:32)
[2020-08-01] MEDS: Aspirin Enteric Coated 325 MG Tablet PO SCH (07:32)
== END 2020-08-01 11:02 | disposition home or self-care (01) ==
LOC: EMEROOARM 16:28 → 3BNU 16:28 → SUATTDRO 21:25 → 3BNU 22:20
PROVIDERS: ADMIT Internal Medicine; ATTEND Nurse Practitioner

== ENCOUNTER 2020-08-08 12:21 | Observation (INO) ==
[2020-08-08] MEDS ORDERED: DilTIAZem 50 MG/50 ML IV.SOLN IVC SCH (12:45)
[2020-08-08 13:25] LABS: Basophils # 0.1 K/mcL (0.0-0.2); Basophils % 0.9 %; Eosinophils # 0.3 K/mcL (0.0-0.6); Eosinophils % 2.5 %; Hematocrit 44.8 % (35.3-44.9); Hemoglobin 14.5 g/dL (11.5-15.4); Immature Granulocytes % 0.3 % (0-4); Lymphocytes # 3.3 K/mcL (0.6-4.6); Lymphocytes % 26.9 %; Mean Corpuscular HGB Conc 32.4 g/dL (31.6-35.5); Mean Corpuscular Hemoglobin 29.8 pg (28.0-33.3); Mean Corpuscular Volume 92.2 fL (83.0-100.0); Mean Platelet Volume 11.6 fL (9.4-12.4); Monocytes # 1.1 K/mcL (0.0-1.3); Monocytes % 9.1 %; Neutrophils # 7.3 K/mcL (1.6-8.9); Platelet Count 281 K/mcL (140-400); Red Blood Count 4.86 M/mcL (3.82-4.97); Red Cell Distribution Width 13.2 % (11.5-14.5); Segmented Neutrophils % 60.3 %; White Blood Count 12.1 K/mcL (4.3-11.1)
[2020-08-08 13:48] LABS: Alanine Aminotransferase 12 Units/L (7-52); Albumin 4.2 g/dL (3.5-5.7); Albumin/Globulin Ratio 1.2 (1.1-2.2); Alkaline Phosphatase 63 Units/L (34-104); Aspartate Amino Transferase 19 Units/L (13-39); BUN/Creatinine Ratio 17 (6-26); Bilirubin,Total 0.5 mg/dL (0.3-1.0); Blood Urea Nitrogen 18 mg/dL (8-23); Calcium 9.4 mg/dL (8.6-10.3); Carbon Dioxide 27 mEq/L (23-29); Chloride 99 mEq/L (98-107); Globulin 3.6 g/dL (2.4-3.5); Glucose 115 mg/dL (70-105); Magnesium 1.9 mg/dL (1.6-2.6); Osmolality,Calculated 295 (280-300); Potassium 3.7 mEq/L (3.5-5.1); Sodium 141 mEq/L (136-145); Total Protein 7.8 g/dL (6.4-8.9); Troponin I < 0.03 ng/mL (< 0.04); eGFR For African Americans > 60 (> 60); eGFR For Non-African Americans 50 (> 60)
[2020-08-08 14:01] LABS: Thyroid Stimulating Hormone 1.643 mcIU/mL (0.340-5.600)
[2020-08-08] MEDS ORDERED: Naloxone 0.4 MG/ML INJ IVP PRN (15:16)
[2020-08-08] MEDS ORDERED: *HR* HYDROcodone/Acet 5/325 mg TABLET PO PRN (15:16)
[2020-08-08] MEDS ORDERED: Melatonin 3 MG TABLET PO PRN (15:16)
[2020-08-08] MEDS ORDERED: Acetaminophen 325 MG TABLET PO PRN (15:16)
[2020-08-08] MEDS ORDERED: *HR* Metoprolol 5 MG/5 ML VIAL IVP PRN (15:52)
[2020-08-08] MEDS ORDERED: *HR* Dextrose 50 % in Water (Vial) 50 ML VIAL IVP PRN (16:00)
[2020-08-08] MEDS ORDERED: D5% in Water 1,000 ML IVC PRN (16:00)
[2020-08-08] MEDS ORDERED: Dextrose Gel 15 GM/37.5 ML TUBE PO PRN ×2 (16:00)
[2020-08-08] MEDS ORDERED: diazePAM 5 MG TABLET PO PRN (16:02)
[2020-08-08] MEDS: Insulin LISPRO 300 UNITS/3 ML VIAL SUBQ SCH (17:17)
[2020-08-08 17:49] LABS: INR 1.1; Prothrombin Time 12.8 Seconds (9.4-12.1)
[2020-08-08] MEDS ORDERED: DilTIAZem CD (24hr) 120 MG CAP.ER.24H PO SCH (21:00)
[2020-08-08] MEDS: Lactobacillus 1 EACH CAP.SPRINK PO SCH (21:13)
[2020-08-08] MEDS: Metoprolol XL (24 HR) Succ 25 MG TAB.ER.24H PO SCH (21:13)
[2020-08-08] MEDS: DilTIAZem SR (12hr) 60 MG CAP.ER.12H PO SCH (21:13)
[2020-08-09 01:03] LABS: Basophils # 0.1 K/mcL (0.0-0.2); Basophils % 1.2 %; Eosinophils # 0.2 K/mcL (0.0-0.6); Eosinophils % 1.5 %; Hematocrit 40.4 % (35.3-44.9); Immature Granulocytes % 0.4 % (0-4); Lymphocytes # 2.3 K/mcL (0.6-4.6); Lymphocytes % 19.8 %; Mean Corpuscular HGB Conc 31.7 g/dL (31.6-35.5); Mean Corpuscular Hemoglobin 29.4 pg (28.0-33.3); Mean Corpuscular Volume 92.9 fL (83.0-100.0); Mean Platelet Volume 11.2 fL (9.4-12.4); Monocytes # 1.3 K/mcL (0.0-1.3); Monocytes % 10.9 %; Neutrophils # 7.8 K/mcL (1.6-8.9); Platelet Count 268 K/mcL (140-400); Red Blood Count 4.35 M/mcL (3.82-4.97); Red Cell Distribution Width 13.2 % (11.5-14.5); Segmented Neutrophils % 66.2 %; White Blood Count 11.8 K/mcL (4.3-11.1)
[2020-08-09 01:04] LABS: Hemoglobin 12.8 g/dL (11.5-15.4)
[2020-08-09 01:13] LABS: INR 1.1; Prothrombin Time 12.4 Seconds (9.4-12.1)
[2020-08-09 01:26] LABS: Alanine Aminotransferase 8 Units/L (7-52); Albumin 3.4 g/dL (3.5-5.7); Albumin/Globulin Ratio 1.3 (1.1-2.2); Alkaline Phosphatase 49 Units/L (34-104); Aspartate Amino Transferase 13 Units/L (13-39); BUN/Creatinine Ratio 17 (6-26); Bilirubin,Total 0.5 mg/dL (0.3-1.0); Blood Urea Nitrogen 15 mg/dL (8-23); Calcium 8.5 mg/dL (8.6-10.3); Carbon Dioxide 25 mEq/L (23-29); Chloride 106 mEq/L (98-107); Globulin 2.7 g/dL (2.4-3.5); Glucose 96 mg/dL (70-105); Magnesium 2.3 mg/dL (1.6-2.6); Osmolality,Calculated 289 (280-300); Phosphorous 3.2 mg/dL (2.7-4.5); Potassium 3.7 mEq/L (3.5-5.1); Sodium 139 mEq/L (136-145); Total Protein 6.1 g/dL (6.4-8.9); eGFR For African Americans > 60 (> 60); eGFR For Non-African Americans 60 (> 60)
[2020-08-09 03:26] LABS: Estimated Average Glucose 143 mg/dl; Hemoglobin A1C 6.6 %
[2020-08-09] MEDS ORDERED: *HR* Enoxaparin 40 MG/0.4 ML SYRINGE SQ SCH (06:00)
[2020-08-09] MEDS: Insulin LISPRO 300 UNITS/3 ML VIAL SUBQ SCH ×2 (07:10→11:35)
[2020-08-09] MEDS: DilTIAZem SR (12hr) 60 MG CAP.ER.12H PO SCH (07:17)
[2020-08-09] MEDS: Lactobacillus 1 EACH CAP.SPRINK PO SCH (07:17)
[2020-08-09] MEDS: Metoprolol XL (24 HR) Succ 25 MG TAB.ER.24H PO SCH (07:18)
[2020-08-09] MEDS ORDERED: Loratadine 10 MG TABLET PO SCH (09:00)
[2020-08-09] MEDS ORDERED: Aspirin Enteric Coated 81 MG Tablet PO SCH (09:00)
[2020-08-09 11:09] VITALS: BP 146/74
== END 2020-08-09 14:06 | disposition home or self-care (01) ==
LOC: EMEROOARM 12:21 → 2ANU 12:21 → SUATTDRO 15:15 → 2ANU 16:53
PROVIDERS: ADMIT Internal Medicine; ATTEND Internal Medicine

== ENCOUNTER 2020-11-09 13:29 | Inpatient (IN) ==
[2020-11-09] MEDS ORDERED: 0.9 % Sodium Chloride 1,000 ML IVC ONE (14:26)
[2020-11-09 15:01] LABS: Hematocrit 37.8 % (35.3-44.9); Hemoglobin 12.5 g/dL (11.5-15.4); Mean Corpuscular HGB Conc 33.1 g/dL (31.6-35.5); Mean Corpuscular Hemoglobin 28.7 pg (28.0-33.3); Mean Corpuscular Volume 86.9 fL (83.0-100.0); Mean Platelet Volume 11.9 fL (9.4-12.4); Platelet Count 240 K/mcL (140-400); Red Blood Count 4.35 M/mcL (3.82-4.97); Red Cell Distribution Width 13.2 % (11.5-14.5); White Blood Count 23.9 K/mcL (4.3-11.1)
[2020-11-09 15:34] LABS: Lymphocytes # 0.7 K/mcL (0.6-4.6); Neutrophils # 22.2 K/mcL (1.6-8.9)
[2020-11-09 15:35] LABS: Platelet Estimate Normal (Normal)
[2020-11-09 15:41] LABS: Alanine Aminotransferase 21 Units/L (7-52); Albumin 3.3 g/dL (3.5-5.7); Alkaline Phosphatase 55 Units/L (34-104); Aspartate Amino Transferase 18 Units/L (13-39); BUN/Creatinine Ratio 20 (6-26); Bilirubin,Direct 0.3 mg/dL (0.0-0.2); Bilirubin,Indirect 0.5 mg/dL (0.0-1.0); Bilirubin,Total 0.8 mg/dL (0.3-1.0); Blood Urea Nitrogen 21 mg/dL (8-23); Calcium 8.6 mg/dL (8.6-10.3); Carbon Dioxide 27 mEq/L (23-29); Chloride 97 mEq/L (98-107); Globulin 3.2 g/dL (2.4-3.5); Glucose 175 mg/dL (70-105); Osmolality,Calculated 285 (280-300); Potassium 3.8 mEq/L (3.5-5.1); Sodium 134 mEq/L (136-145); Total Protein 6.5 g/dL (6.4-8.9); Troponin I 0.06 ng/mL (< 0.04); eGFR For African Americans > 60 (> 60); eGFR For Non-African Americans 50 (> 60)
[2020-11-09 16:17] LABS: Bilirubin,Urine Negative (Negative); Blood,Urine Negative (Negative); Clarity,Urine Clear (Clear); Color,Urine Yellow (Yellow); Glucose,Urine (UA) Normal (Normal); Ketones,Urine Trace mg/dL (Negative); Leukocyte Esterase,Urine Small (Negative); Mucus,Urine Few per lpf (None-Few); Nitrite,Urine Negative (Negative); PH,Urine 6.5 pH Units (5.0-8.0); Protein,Urine 100 mg/dL (Neg-Trace); RBC,Urine 0-3 per hpf (0-3); Specific Gravity,Urine 1.021 (1.010-1.025); Squamous Epithelial Cell,Urine Few per hpf (None-Few); Urobilinogen,Urine Normal (Normal)
[2020-11-09] MEDS ORDERED: cefTRIAXone 1,000 MG in 0.9 % Sodium Chloride Mini Bag 100 ML IVPB ONE (17:06)
[2020-11-09] MEDS ORDERED: Aspirin 325 MG TABLET PO ONE (17:06)
[2020-11-09 17:38] LABS: ABG Base Excess 2 mEq/L (-2 to 3); ABG HCO3 26 mEq/L (21-27); ABG Oxygen Saturation 87 % (95-98); ABG PCO2 41 mmHg (35-45); ABG PH 7.42 pH Units (7.32-7.45); ABG PO2 51 mmHg (85-104); ABG TCO2 28 mEq/L (20-26)
[2020-11-09] MEDS ORDERED: Ondansetron 4 MG/2 ML VIAL IVP PRN (18:03)
[2020-11-09] MEDS ORDERED: Acetaminophen 325 MG TABLET PO PRN (18:03)
[2020-11-09] MEDS ORDERED: *HR* Dextrose 50 % in Water (Vial) 50 ML VIAL IVP PRN (18:04)
[2020-11-09] MEDS ORDERED: D5% in Water 1,000 ML IVC PRN (18:04)
[2020-11-09] MEDS ORDERED: Dextrose Gel 15 GM/37.5 ML TUBE PO PRN ×2 (18:04)
[2020-11-09] MEDS ORDERED: Remdesivir 200 MG in 0.9 % Sodium Chloride 100 ML IVPB ONE (18:38)
[2020-11-09] MEDS: DilTIAZem SR (12hr) 60 MG CAP.ER.12H PO SCH (22:12)
[2020-11-09] MEDS: Metoprolol XL (24 HR) Succ 25 MG TAB.ER.24H PO SCH (22:12)
[2020-11-09] MEDS: Apixaban 5 MG TABLET PO SCH (22:13)
[2020-11-09] MEDS: Dexamethasone Sodium Phos/PF 10 MG/ML VIAL IVP SCH (22:30)
[2020-11-10 03:04] LABS: Adenovirus Not Detected (Not Detect); Coronavirus 229E Not Detected (Not Detect); Coronavirus HKU1 Not Detected (Not Detect); Coronavirus NL63 Not Detected (Not Detect); Coronavirus OC43 Not Detected (Not Detect)
[2020-11-10 03:05] LABS: Bordetella Pertussis Not Detected (Not Detect); Chlamydophila pneumoniae Not Detected (Not Detect); Human Metapneumovirus Not Detected (Not Detect); Human Rhinovirus/Enterovirus Not Detected (Not Detect); Influenza A Subtype 2009 H1 Not Detected (Not Detect); Influenza B Not Detected (Not Detect); Mycoplasma pneumoniae Not Detected (Not Detect); Parainfluenza Virus 1 Not Detected (Not Detect); Parainfluenza Virus 2 Not Detected (Not Detect); Parainfluenza Virus 3 Not Detected (Not Detect); Parainfluenza Virus 4 Not Detected (Not Detect); Respiratory Syncytial Virus Not Detected (Not Detect); SARS-CoV-2 DETECTED (Not Detect)
[2020-11-10 05:39] LABS: Mean Platelet Volume 11.6 fL (9.4-12.4); Red Cell Distribution Width 13.3 % (11.5-14.5)
[2020-11-10 05:40] LABS: Hematocrit 38.8 % (35.3-44.9); Hemoglobin 12.4 g/dL (11.5-15.4); Mean Corpuscular Hemoglobin 28.4 pg (28.0-33.3); Mean Corpuscular Volume 88.8 fL (83.0-100.0); Platelet Count 262 K/mcL (140-400); Red Blood Count 4.37 M/mcL (3.82-4.97); White Blood Count 27.3 K/mcL (4.3-11.1)
[2020-11-10 05:48] LABS: Albumin 2.9 g/dL (3.5-5.7); Albumin/Globulin Ratio 0.9 (1.1-2.2); Bilirubin,Direct 0.1 mg/dL (0.0-0.2); Bilirubin,Indirect 0.5 mg/dL (0.0-1.0); Bilirubin,Total 0.6 mg/dL (0.3-1.0); Globulin 3.4 g/dL (2.4-3.5); Total Protein 6.3 g/dL (6.4-8.9)
[2020-11-10 05:50] LABS: BUN/Creatinine Ratio 20 (6-26); Blood Urea Nitrogen 20 mg/dL (8-23); Calcium 8.2 mg/dL (8.6-10.3); Carbon Dioxide 25 mEq/L (23-29); Chloride 96 mEq/L (98-107); Glucose 211 mg/dL (70-105); Magnesium 1.6 mg/dL (1.6-2.6); Osmolality,Calculated 279 (280-300); Phosphorous 2.6 mg/dL (2.7-4.5); Sodium 130 mEq/L (136-145); Troponin I 0.08 ng/mL (< 0.04); eGFR For African Americans > 60 (> 60); eGFR For Non-African Americans 53 (> 60)
[2020-11-10] MEDS: cefTRIAXone 1,000 MG in Water for inj. (sterile) 10 ML IVP SCH (07:50)
[2020-11-10] MEDS: Insulin LISPRO 300 UNITS/3 ML VIAL SUBQ SCH ×3 (07:50→17:19)
[2020-11-10] MEDS: Dexamethasone Sodium Phos/PF 10 MG/ML VIAL IVP SCH (07:50)
[2020-11-10] MEDS: Metoprolol XL (24 HR) Succ 25 MG TAB.ER.24H PO SCH ×2 (07:51→19:50)
[2020-11-10] MEDS: DilTIAZem SR (12hr) 60 MG CAP.ER.12H PO SCH ×2 (07:51→19:50)
[2020-11-10] MEDS: Apixaban 5 MG TABLET PO SCH ×2 (07:51→19:50)
[2020-11-10] MEDS: Aspirin Enteric Coated 81 MG Tablet PO SCH (07:51)
[2020-11-10] MEDS: diazePAM 5 MG TABLET PO PRN ×2 (08:01→19:51)
[2020-11-10] MEDS: Remdesivir 100 MG in 0.9 % Sodium Chloride 100 ML IVPB SCH (19:06)
[2020-11-11] MEDS ORDERED: Chloraseptic Spray 177 ML BOTTLE MM PRN (06:41)
[2020-11-11 07:40] LABS: Hematocrit 41.9 % (35.3-44.9); Hemoglobin 13.7 g/dL (11.5-15.4); Mean Corpuscular HGB Conc 32.7 g/dL (31.6-35.5); Mean Corpuscular Hemoglobin 28.8 pg (28.0-33.3); Mean Platelet Volume 11.2 fL (9.4-12.4); Platelet Count 381 K/mcL (140-400); Red Blood Count 4.76 M/mcL (3.82-4.97); Red Cell Distribution Width 13.8 % (11.5-14.5); White Blood Count 29.2 K/mcL (4.3-11.1)
[2020-11-11] MEDS: Apixaban 5 MG TABLET PO SCH ×2 (07:52→20:41)
[2020-11-11] MEDS: Aspirin Enteric Coated 81 MG Tablet PO SCH (07:52)
[2020-11-11] MEDS: DilTIAZem SR (12hr) 60 MG CAP.ER.12H PO SCH ×2 (07:52→22:27)
[2020-11-11] MEDS: Metoprolol XL (24 HR) Succ 25 MG TAB.ER.24H PO SCH ×2 (07:52→20:41)
[2020-11-11] MEDS: cefTRIAXone 1,000 MG in Water for inj. (sterile) 10 ML IVP SCH (07:53)
[2020-11-11] MEDS: Dexamethasone Sodium Phos/PF 10 MG/ML VIAL IVP SCH (07:53)
[2020-11-11] MEDS: Insulin LISPRO 300 UNITS/3 ML VIAL SUBQ SCH ×3 (07:53→19:05)
[2020-11-11 07:58] LABS: Albumin 3.1 g/dL (3.5-5.7); Bilirubin,Direct 0.2 mg/dL (0.0-0.2); Bilirubin,Indirect 0.4 mg/dL (0.0-1.0); Bilirubin,Total 0.6 mg/dL (0.3-1.0); Globulin 3.2 g/dL (2.4-3.5); Total Protein 6.3 g/dL (6.4-8.9)
[2020-11-11 08:00] LABS: Calcium 8.3 mg/dL (8.6-10.3); Magnesium 1.9 mg/dL (1.6-2.6); Phosphorous 2.6 mg/dL (2.7-4.5); Potassium 3.8 mEq/L (3.5-5.1)
[2020-11-11] MEDS: Remdesivir 100 MG in 0.9 % Sodium Chloride 100 ML IVPB SCH (19:56)
[2020-11-11] MEDS: diazePAM 5 MG TABLET PO PRN (20:57)
[2020-11-12] MEDS ORDERED: *HR* LORazepam 2 MG/ML VIAL IVP ONE ×3 (01:04→05:10)
[2020-11-12 03:26] LABS: Hematocrit 40.2 % (35.3-44.9); Hemoglobin 13.5 g/dL (11.5-15.4); Mean Corpuscular HGB Conc 33.6 g/dL (31.6-35.5); Mean Corpuscular Hemoglobin 29.2 pg (28.0-33.3); Mean Platelet Volume 11.1 fL (9.4-12.4); Platelet Count 396 K/mcL (140-400); Red Blood Count 4.62 M/mcL (3.82-4.97); Red Cell Distribution Width 13.8 % (11.5-14.5); White Blood Count 23.1 K/mcL (4.3-11.1)
[2020-11-12 03:33] LABS: Calcium 7.8 mg/dL (8.6-10.3); Potassium 3.7 mEq/L (3.5-5.1)
[2020-11-12 03:35] LABS: Albumin 2.6 g/dL (3.5-5.7); Albumin/Globulin Ratio 0.8 (1.1-2.2); Bilirubin,Direct 0.1 mg/dL (0.0-0.2); Bilirubin,Indirect 0.3 mg/dL (0.0-1.0); Bilirubin,Total 0.4 mg/dL (0.3-1.0); Globulin 3.1 g/dL (2.4-3.5); Total Protein 5.7 g/dL (6.4-8.9)
[2020-11-12] MEDS: Insulin LISPRO 300 UNITS/3 ML VIAL SUBQ SCH ×3 (10:02→17:35)
[2020-11-12] MEDS: cefTRIAXone 1,000 MG in Water for inj. (sterile) 10 ML IVP SCH (10:17)
[2020-11-12] MEDS: Dexamethasone Sodium Phos/PF 10 MG/ML VIAL IVP SCH (10:17)
[2020-11-12] MEDS ORDERED: Furosemide 40 MG/4 ML VIAL IVP ONE (12:02)
[2020-11-12] MEDS: Aspirin Enteric Coated 81 MG Tablet PO SCH (12:43)
[2020-11-12] MEDS: Metoprolol XL (24 HR) Succ 25 MG TAB.ER.24H PO SCH (12:43)
[2020-11-12] MEDS: Apixaban 5 MG TABLET PO SCH ×2 (12:43→21:01)
[2020-11-12] MEDS: DilTIAZem SR (12hr) 60 MG CAP.ER.12H PO SCH (12:43)
[2020-11-12] MEDS: Remdesivir 100 MG in 0.9 % Sodium Chloride 100 ML IVPB SCH (18:24)
[2020-11-12] MEDS: Levalbuterol 1 PUFF INHALER IH SCH (20:21)
[2020-11-12] MEDS: *HR* Metoprolol 5 MG/5 ML VIAL IVP SCH (23:36)
[2020-11-13 01:44] LABS: Hematocrit 40.2 % (35.3-44.9); Hemoglobin 13.1 g/dL (11.5-15.4); Mean Corpuscular HGB Conc 32.6 g/dL (31.6-35.5); Mean Corpuscular Hemoglobin 28.6 pg (28.0-33.3); Mean Corpuscular Volume 87.8 fL (83.0-100.0); Mean Platelet Volume 11.2 fL (9.4-12.4); Platelet Count 381 K/mcL (140-400); Red Blood Count 4.58 M/mcL (3.82-4.97); Red Cell Distribution Width 13.9 % (11.5-14.5); White Blood Count 16.2 K/mcL (4.3-11.1)
[2020-11-13 01:52] LABS: VBG HCO3 26 mEq/L (21-27); VBG PCO2 44 mmHg (41-51); VBG PH 7.38 pH Units (7.32-7.42); VBG PO2 57 mmHg (25-50)
[2020-11-13 02:03] LABS: Albumin 2.6 g/dL (3.5-5.7); Albumin/Globulin Ratio 0.8 (1.1-2.2); Bilirubin,Direct 0.1 mg/dL (0.0-0.2); Bilirubin,Indirect 0.3 mg/dL (0.0-1.0); Bilirubin,Total 0.4 mg/dL (0.3-1.0); Calcium 7.8 mg/dL (8.6-10.3); Globulin 3.3 g/dL (2.4-3.5); Magnesium 2.1 mg/dL (1.6-2.6); Phosphorous 3.8 mg/dL (2.7-4.5); Total Protein 5.9 g/dL (6.4-8.9)
[2020-11-13] MEDS: Levalbuterol 1 PUFF INHALER IH SCH ×4 (03:38→20:06)
[2020-11-13] MEDS: *HR* Metoprolol 5 MG/5 ML VIAL IVP SCH ×2 (05:20→11:47)
[2020-11-13] MEDS: Apixaban 5 MG TABLET PO SCH ×3 (08:02→23:43)
[2020-11-13] MEDS: Aspirin Enteric Coated 81 MG Tablet PO SCH (08:02)
[2020-11-13] MEDS: Insulin LISPRO 300 UNITS/3 ML VIAL SUBQ SCH ×4 (08:12→23:45)
[2020-11-13] MEDS: Dexamethasone Sodium Phos/PF 10 MG/ML VIAL IVP SCH (08:13)
[2020-11-13] MEDS: Metoprolol XL (24 HR) Succ 25 MG TAB.ER.24H PO SCH ×2 (13:45→20:26)
[2020-11-13] MEDS: DilTIAZem CD (24hr) 120 MG CAP.ER.24H PO SCH (13:45)
[2020-11-13] MEDS ORDERED: GuaiFENesin/Dextromethorphan TABLET PO SCH (15:15)
[2020-11-13] MEDS: GuaiFENesin/Dextromethorphan TABLET PO SCH (20:26)
[2020-11-13] MEDS: Remdesivir 100 MG in 0.9 % Sodium Chloride 100 ML IVPB SCH (20:26)
[2020-11-13] MEDS: Insulin DETEMIR 100 UNIT/ML X5UNITS SUBQ SCH (20:26)
[2020-11-14] MEDS: DilTIAZem CD (24hr) 120 MG CAP.ER.24H PO SCH ×2 (00:04→10:12)
[2020-11-14 03:40] LABS: Hematocrit 38.8 % (35.3-44.9); Hemoglobin 12.7 g/dL (11.5-15.4); Mean Corpuscular HGB Conc 32.7 g/dL (31.6-35.5); Mean Corpuscular Hemoglobin 28.5 pg (28.0-33.3); Mean Corpuscular Volume 87.2 fL (83.0-100.0); Mean Platelet Volume 11.2 fL (9.4-12.4); Platelet Count 406 K/mcL (140-400); Red Blood Count 4.45 M/mcL (3.82-4.97); Red Cell Distribution Width 13.9 % (11.5-14.5); White Blood Count 15.3 K/mcL (4.3-11.1)
[2020-11-14 03:54] LABS: Albumin 2.5 g/dL (3.5-5.7); Albumin/Globulin Ratio 0.9 (1.1-2.2); Bilirubin,Direct 0.1 mg/dL (0.0-0.2); Bilirubin,Indirect 0.3 mg/dL (0.0-1.0); Bilirubin,Total 0.4 mg/dL (0.3-1.0); Globulin 2.9 g/dL (2.4-3.5); Magnesium 2.3 mg/dL (1.6-2.6); Phosphorous 3.1 mg/dL (2.7-4.5); Total Protein 5.4 g/dL (6.4-8.9)
[2020-11-14] MEDS: Levalbuterol 1 PUFF INHALER IH SCH ×4 (04:17→21:50)
[2020-11-14] MEDS: Insulin LISPRO 300 UNITS/3 ML VIAL SUBQ SCH ×3 (05:14→18:47)
[2020-11-14] MEDS: GuaiFENesin/Dextromethorphan TABLET PO SCH ×2 (07:56→21:09)
[2020-11-14] MEDS: Aspirin Enteric Coated 81 MG Tablet PO SCH (07:56)
[2020-11-14] MEDS: Metoprolol XL (24 HR) Succ 25 MG TAB.ER.24H PO SCH ×2 (07:56→21:09)
[2020-11-14] MEDS: Apixaban 5 MG TABLET PO SCH ×2 (07:56→21:09)
[2020-11-14] MEDS: Dexamethasone Sodium Phos/PF 10 MG/ML VIAL IVP SCH (07:57)
[2020-11-14] MEDS: Furosemide 40 MG/4 ML VIAL IVP SCH (10:12)
[2020-11-14] MEDS ORDERED: Lidocaine -MPF 1% 5 ML AMPUL INFILT ONE (19:04)
[2020-11-14] MEDS: DilTIAZem SR (12hr) 60 MG CAP.ER.12H PO SCH (21:09)
[2020-11-14] MEDS: Insulin DETEMIR 100 UNIT/ML X5UNITS SUBQ SCH (21:09)
[2020-11-15] MEDS: Insulin LISPRO 300 UNITS/3 ML VIAL SUBQ SCH ×4 (00:21→17:28)
[2020-11-15 04:42] LABS: Hematocrit 43.1 % (35.3-44.9); Hemoglobin 14.2 g/dL (11.5-15.4); Mean Corpuscular HGB Conc 32.9 g/dL (31.6-35.5); Mean Corpuscular Hemoglobin 28.7 pg (28.0-33.3); Mean Corpuscular Volume 87.1 fL (83.0-100.0); Mean Platelet Volume 11.1 fL (9.4-12.4); Platelet Count 462 K/mcL (140-400); Red Blood Count 4.95 M/mcL (3.82-4.97); Red Cell Distribution Width 13.9 % (11.5-14.5); White Blood Count 21.3 K/mcL (4.3-11.1)
[2020-11-15 04:58] LABS: Calcium 8.4 mg/dL (8.6-10.3); Magnesium 2.1 mg/dL (1.6-2.6); Phosphorous 4.1 mg/dL (2.7-4.5); Potassium 3.9 mEq/L (3.5-5.1)
[2020-11-15] MEDS: Levalbuterol 1 PUFF INHALER IH SCH ×4 (05:03→21:59)
[2020-11-15] MEDS: GuaiFENesin/Dextromethorphan TABLET PO SCH ×2 (08:37→20:36)
[2020-11-15] MEDS: Aspirin Enteric Coated 81 MG Tablet PO SCH (08:37)
[2020-11-15] MEDS: Dexamethasone Sodium Phos/PF 10 MG/ML VIAL IVP SCH (08:37)
[2020-11-15] MEDS: Apixaban 5 MG TABLET PO SCH ×2 (08:37→20:37)
[2020-11-15] MEDS: Metoprolol XL (24 HR) Succ 25 MG TAB.ER.24H PO SCH ×2 (08:37→20:38)
[2020-11-15] MEDS: Furosemide 40 MG/4 ML VIAL IVP SCH (08:37)
[2020-11-15] MEDS: DilTIAZem SR (12hr) 60 MG CAP.ER.12H PO SCH ×2 (08:39→20:36)
[2020-11-15] MEDS: Insulin DETEMIR 100 UNIT/ML X5UNITS SUBQ SCH (21:01)
[2020-11-16] MEDS: Insulin LISPRO 300 UNITS/3 ML VIAL SUBQ SCH ×4 (01:57→16:49)
[2020-11-16] MEDS: Levalbuterol 1 PUFF INHALER IH SCH ×4 (04:12→22:09)
[2020-11-16] MEDS: Aspirin Enteric Coated 81 MG Tablet PO SCH (10:12)
[2020-11-16] MEDS: Apixaban 5 MG TABLET PO SCH ×2 (10:12→20:16)
[2020-11-16] MEDS: DilTIAZem SR (12hr) 60 MG CAP.ER.12H PO SCH ×2 (10:12→20:16)
[2020-11-16] MEDS: GuaiFENesin/Dextromethorphan TABLET PO SCH ×2 (10:12→20:16)
[2020-11-16] MEDS: Dexamethasone Sodium Phos/PF 10 MG/ML VIAL IVP SCH (10:12)
[2020-11-16] MEDS: Metoprolol XL (24 HR) Succ 25 MG TAB.ER.24H PO SCH ×2 (10:12→20:16)
[2020-11-16] MEDS: Furosemide 40 MG/4 ML VIAL IVP SCH (10:13)
[2020-11-16] MEDS ORDERED: *HR* Dextrose 50 % in Water (Syg) 50 ML SYRINGE IVP PRN (17:07)
[2020-11-16] MEDS ORDERED: D5% in Water 1,000 ML IVC PRN (17:07)
[2020-11-16] MEDS ORDERED: Dextrose Gel 15 GM/37.5 ML TUBE PO PRN ×2 (17:07)
[2020-11-16] MEDS: Insulin DETEMIR 100 UNIT/ML X5UNITS SUBQ SCH (20:16)
[2020-11-16] MEDS ORDERED: Insulin LISPRO 300 UNITS/3 ML VIAL SUBQ SCH (21:00)
[2020-11-17] MEDS: Levalbuterol 1 PUFF INHALER IH SCH ×4 (05:07→20:46)
[2020-11-17 06:02] LABS: Basophils % 0.2 %; Hematocrit 39.3 % (35.3-44.9); Hemoglobin 13.1 g/dL (11.5-15.4); Immature Granulocytes % 1.9 % (0-4); Lymphocytes # 0.8 K/mcL (0.6-4.6); Lymphocytes % 3.8 %; Mean Corpuscular HGB Conc 33.3 g/dL (31.6-35.5); Mean Corpuscular Hemoglobin 28.9 pg (28.0-33.3); Mean Corpuscular Volume 86.6 fL (83.0-100.0); Mean Platelet Volume 11.6 fL (9.4-12.4); Monocytes # 0.8 K/mcL (0.0-1.3); Monocytes % 4.2 %; Neutrophils # 18.2 K/mcL (1.6-8.9); Platelet Count 372 K/mcL (140-400); Red Blood Count 4.54 M/mcL (3.82-4.97); Segmented Neutrophils % 89.9 %; White Blood Count 20.2 K/mcL (4.3-11.1)
[2020-11-17 06:17] LABS: Calcium 7.9 mg/dL (8.6-10.3); Potassium 3.9 mEq/L (3.5-5.1)
[2020-11-17] MEDS: Dexamethasone Sodium Phos/PF 10 MG/ML VIAL IVP SCH (09:04)
[2020-11-17] MEDS: Insulin LISPRO 300 UNITS/3 ML VIAL SUBQ SCH ×4 (09:05→22:46)
[2020-11-17] MEDS: Metoprolol XL (24 HR) Succ 25 MG TAB.ER.24H PO SCH ×2 (09:05→22:39)
[2020-11-17] MEDS: DilTIAZem SR (12hr) 60 MG CAP.ER.12H PO SCH ×2 (09:05→22:45)
[2020-11-17] MEDS: GuaiFENesin/Dextromethorphan TABLET PO SCH ×2 (09:05→22:39)
[2020-11-17] MEDS: Aspirin Enteric Coated 81 MG Tablet PO SCH (09:05)
[2020-11-17] MEDS: Apixaban 5 MG TABLET PO SCH ×2 (09:05→22:39)
[2020-11-17] MEDS: Insulin DETEMIR 100 UNIT/ML X5UNITS SUBQ SCH (22:45)
[2020-11-18] MEDS: Levalbuterol 1 PUFF INHALER IH SCH ×4 (05:17→21:30)
[2020-11-18] MEDS: DilTIAZem SR (12hr) 60 MG CAP.ER.12H PO SCH ×2 (08:11→20:38)
[2020-11-18] MEDS: Aspirin Enteric Coated 81 MG Tablet PO SCH (08:11)
[2020-11-18] MEDS: GuaiFENesin/Dextromethorphan TABLET PO SCH ×2 (08:11→20:39)
[2020-11-18] MEDS: Apixaban 5 MG TABLET PO SCH ×2 (08:11→20:39)
[2020-11-18] MEDS: Metoprolol XL (24 HR) Succ 25 MG TAB.ER.24H PO SCH ×2 (08:12→20:39)
[2020-11-18] MEDS: Insulin LISPRO 300 UNITS/3 ML VIAL SUBQ SCH ×4 (08:13→20:40)
[2020-11-18] MEDS: Dexamethasone Sodium Phos/PF 10 MG/ML VIAL IVP SCH (08:16)
[2020-11-18 10:55] LABS: Hemoglobin 13.1 g/dL (11.5-15.4); Mean Platelet Volume 11.7 fL (9.4-12.4)
[2020-11-18 10:56] LABS: Hematocrit 38.2 % (35.3-44.9); Mean Corpuscular HGB Conc 34.3 g/dL (31.6-35.5); Mean Corpuscular Hemoglobin 29.2 pg (28.0-33.3); Mean Corpuscular Volume 85.3 fL (83.0-100.0); Platelet Count 334 K/mcL (140-400); Red Blood Count 4.48 M/mcL (3.82-4.97); Red Cell Distribution Width 13.6 % (11.5-14.5); White Blood Count 29.4 K/mcL (4.3-11.1)
[2020-11-18 11:09] LABS: Potassium 3.9 mEq/L (3.5-5.1)
[2020-11-18 11:23] LABS: Lymphocytes # 2.9 K/mcL (0.6-4.6); Monocytes # 1.8 K/mcL (0.0-1.3); Neutrophils # 24.7 K/mcL (1.6-8.9); Platelet Estimate Normal (Normal)
[2020-11-18] MEDS: Insulin DETEMIR 100 UNIT/ML X5UNITS SUBQ SCH (20:39)
[2020-11-19] MEDS: Levalbuterol 1 PUFF INHALER IH SCH ×4 (03:57→20:50)
[2020-11-19] MEDS: GuaiFENesin/Dextromethorphan TABLET PO SCH ×2 (09:36→20:21)
[2020-11-19] MEDS: Insulin LISPRO 300 UNITS/3 ML VIAL SUBQ SCH ×4 (09:36→20:44)
[2020-11-19] MEDS: Apixaban 5 MG TABLET PO SCH ×2 (09:36→20:22)
[2020-11-19] MEDS: DilTIAZem SR (12hr) 60 MG CAP.ER.12H PO SCH ×2 (09:36→20:22)
[2020-11-19] MEDS: Metoprolol XL (24 HR) Succ 25 MG TAB.ER.24H PO SCH ×2 (09:36→20:22)
[2020-11-19] MEDS: Aspirin Enteric Coated 81 MG Tablet PO SCH (09:36)
[2020-11-19] MEDS: Dexamethasone Sodium Phos/PF 10 MG/ML VIAL IVP SCH (09:38)
[2020-11-19 09:52] LABS: Basophils % 0.2 %; Hematocrit 37.1 % (35.3-44.9); Hemoglobin 12.7 g/dL (11.5-15.4); Immature Granulocytes % 1.9 % (0-4); Lymphocytes % 4.1 %; Mean Corpuscular HGB Conc 34.2 g/dL (31.6-35.5); Mean Corpuscular Hemoglobin 29.1 pg (28.0-33.3); Mean Corpuscular Volume 85.1 fL (83.0-100.0); Mean Platelet Volume 12.4 fL (9.4-12.4); Monocytes # 1.4 K/mcL (0.0-1.3); Monocytes % 5.9 %; Neutrophils # 20.7 K/mcL (1.6-8.9); Platelet Count 262 K/mcL (140-400); Red Blood Count 4.36 M/mcL (3.82-4.97); Red Cell Distribution Width 13.8 % (11.5-14.5); Segmented Neutrophils % 87.9 %; White Blood Count 23.5 K/mcL (4.3-11.1)
[2020-11-19] MEDS: Insulin DETEMIR 100 UNIT/ML X5UNITS SUBQ SCH (20:44)
[2020-11-20] MEDS: Levalbuterol 1 PUFF INHALER IH SCH ×4 (03:57→20:52)
[2020-11-20] MEDS: Dexamethasone Sodium Phos/PF 10 MG/ML VIAL IVP SCH (08:00)
[2020-11-20] MEDS: Metoprolol XL (24 HR) Succ 25 MG TAB.ER.24H PO SCH ×2 (08:01→20:56)
[2020-11-20] MEDS: DilTIAZem SR (12hr) 60 MG CAP.ER.12H PO SCH ×2 (08:01→20:59)
[2020-11-20] MEDS: Aspirin Enteric Coated 81 MG Tablet PO SCH (08:01)
[2020-11-20] MEDS: Insulin LISPRO 300 UNITS/3 ML VIAL SUBQ SCH ×4 (08:01→22:03)
[2020-11-20] MEDS: GuaiFENesin/Dextromethorphan TABLET PO SCH ×2 (08:01→20:59)
[2020-11-20] MEDS: Apixaban 5 MG TABLET PO SCH ×2 (08:02→20:59)
[2020-11-20] MEDS ORDERED: Saliva Stimulant 44.3ml BOTTLE PO PRN (13:49)
[2020-11-20] MEDS ORDERED: Saline Nasal Spray 44 ML BOTTLE NS PRN (13:49)
[2020-11-20] MEDS: Chlorhexidine Rinse 15 ML MOUTHWASH MM SCH (20:55)
[2020-11-20] MEDS: Melatonin 3 MG TABLET PO PRN (20:59)
[2020-11-20] MEDS: Artificial Tears SOLN 15 ML BOTTLE BOTH EYES SCH (20:59)
[2020-11-20] MEDS: Insulin DETEMIR 100 UNIT/ML X5UNITS SUBQ SCH (22:03)
[2020-11-21 01:31] LABS: Hematocrit 36.4 % (35.3-44.9); Mean Corpuscular Hemoglobin 28.4 pg (28.0-33.3); Mean Corpuscular Volume 86.1 fL (83.0-100.0); Mean Platelet Volume 12.6 fL (9.4-12.4); Platelet Count 233 K/mcL (140-400); Red Blood Count 4.23 M/mcL (3.82-4.97); Red Cell Distribution Width 13.9 % (11.5-14.5); White Blood Count 17.6 K/mcL (4.3-11.1)
[2020-11-21 01:36] LABS: Calcium 7.8 mg/dL (8.6-10.3); Magnesium 2.4 mg/dL (1.6-2.6); Phosphorous 3.1 mg/dL (2.7-4.5); Potassium 4.7 mEq/L (3.5-5.1)
[2020-11-21] MEDS: Levalbuterol 1 PUFF INHALER IH SCH ×4 (05:48→20:38)
[2020-11-21 06:39] LABS: Bilirubin,Urine Small (Negative); Blood,Urine Large (Negative); Clarity,Urine Turbid (Clear); Color,Urine Red (Yellow); Glucose,Urine (UA) Normal (Normal); Ketones,Urine Trace mg/dL (Negative); Leukocyte Esterase,Urine Negative (Negative); Nitrite,Urine Negative (Negative); PH,Urine 5.5 pH Units (5.0-8.0); Protein,Urine >=300 mg/dL (Neg-Trace); Urobilinogen,Urine Normal (Normal)
[2020-11-21] MEDS: Aspirin Enteric Coated 81 MG Tablet PO SCH (09:34)
[2020-11-21] MEDS: GuaiFENesin/Dextromethorphan TABLET PO SCH ×2 (09:34→20:39)
[2020-11-21] MEDS: DilTIAZem SR (12hr) 60 MG CAP.ER.12H PO SCH ×2 (09:34→20:36)
[2020-11-21] MEDS: Multivit/Ca/Min/Fe/FA 1 TAB TABLET PO SCH (09:34)
[2020-11-21] MEDS: Cholecalciferol (D-3) 1,000 UNIT (25MCG) TABLET PO SCH (09:34)
[2020-11-21] MEDS: Apixaban 5 MG TABLET PO SCH ×2 (09:34→20:39)
[2020-11-21] MEDS: Metoprolol XL (24 HR) Succ 25 MG TAB.ER.24H PO SCH ×2 (09:34→20:39)
[2020-11-21] MEDS: Chlorhexidine Rinse 15 ML MOUTHWASH MM SCH ×2 (09:35→20:36)
[2020-11-21] MEDS: Artificial Tears SOLN 15 ML BOTTLE BOTH EYES SCH ×2 (09:35→20:36)
[2020-11-21] MEDS: Insulin LISPRO 300 UNITS/3 ML VIAL SUBQ SCH ×4 (09:36→20:39)
[2020-11-22 03:38] LABS: Hematocrit 36.4 % (35.3-44.9); Hemoglobin 12.4 g/dL (11.5-15.4); Mean Corpuscular HGB Conc 34.1 g/dL (31.6-35.5); Mean Corpuscular Hemoglobin 29.3 pg (28.0-33.3); Mean Corpuscular Volume 86.1 fL (83.0-100.0); Mean Platelet Volume 12.7 fL (9.4-12.4); Platelet Count 202 K/mcL (140-400); Red Blood Count 4.23 M/mcL (3.82-4.97); White Blood Count 26.4 K/mcL (4.3-11.1)
[2020-11-22 03:54] LABS: Albumin 2.1 g/dL (3.5-5.7); Albumin/Globulin Ratio 0.8 (1.1-2.2); Bilirubin,Total 0.8 mg/dL (0.3-1.0); Calcium 7.9 mg/dL (8.6-10.3); Globulin 2.7 g/dL (2.4-3.5); Potassium 4.6 mEq/L (3.5-5.1); Total Protein 4.8 g/dL (6.4-8.9)
[2020-11-22 03:56] LABS: C-Reactive Protein 12 mg/L (Less than 10); Lactate Dehydrogenase 357 Units/L (140-271); Magnesium 2.3 mg/dL (1.6-2.6); Phosphorous 3.1 mg/dL (2.7-4.5)
[2020-11-22 04:16] LABS: Ferritin > 1500 ng/mL (10-120)
[2020-11-22] MEDS: Levalbuterol 1 PUFF INHALER IH SCH ×4 (05:13→20:43)
[2020-11-22] MEDS: Aspirin Enteric Coated 81 MG Tablet PO SCH (09:06)
[2020-11-22] MEDS: Multivit/Ca/Min/Fe/FA 1 TAB TABLET PO SCH (09:06)
[2020-11-22] MEDS: Metoprolol XL (24 HR) Succ 25 MG TAB.ER.24H PO SCH ×2 (09:07→20:12)
[2020-11-22] MEDS: Apixaban 5 MG TABLET PO SCH ×2 (09:07→20:12)
[2020-11-22] MEDS: Chlorhexidine Rinse 15 ML MOUTHWASH MM SCH ×2 (09:07→20:11)
[2020-11-22] MEDS: Cholecalciferol (D-3) 1,000 UNIT (25MCG) TABLET PO SCH (09:07)
[2020-11-22] MEDS: DilTIAZem SR (12hr) 60 MG CAP.ER.12H PO SCH ×2 (09:07→20:11)
[2020-11-22] MEDS: GuaiFENesin/Dextromethorphan TABLET PO SCH ×2 (09:07→20:22)
[2020-11-22] MEDS: Insulin LISPRO 300 UNITS/3 ML VIAL SUBQ SCH ×3 (09:08→20:13)
[2020-11-22] MEDS: Artificial Tears SOLN 15 ML BOTTLE BOTH EYES SCH (09:08)
[2020-11-22] MEDS: Melatonin 3 MG TABLET PO PRN (20:12)
[2020-11-23 03:35] LABS: Mean Platelet Volume 13.3 fL (9.4-12.4)
[2020-11-23 03:37] LABS: Hematocrit 35.6 % (35.3-44.9); Hemoglobin 11.9 g/dL (11.5-15.4); Immature Platelets 12.9 % (1.1-6.1); Mean Corpuscular HGB Conc 33.4 g/dL (31.6-35.5); Mean Corpuscular Hemoglobin 28.7 pg (28.0-33.3); Red Blood Count 4.14 M/mcL (3.82-4.97); Red Cell Distribution Width 14.4 % (11.5-14.5); White Blood Count 26.1 K/mcL (4.3-11.1)
[2020-11-23] MEDS: Levalbuterol 1 PUFF INHALER IH SCH ×4 (03:40→20:55)
[2020-11-23 04:20] LABS: C-Reactive Protein 91 mg/L (Less than 10); Lactate Dehydrogenase 379 Units/L (140-271); Magnesium 2.4 mg/dL (1.6-2.6); Phosphorous 3.7 mg/dL (2.7-4.5)
[2020-11-23 04:21] LABS: Albumin 2.2 g/dL (3.5-5.7); Albumin/Globulin Ratio 0.8 (1.1-2.2); Bilirubin,Total 0.9 mg/dL (0.3-1.0); Globulin 2.6 g/dL (2.4-3.5); Potassium 4.7 mEq/L (3.5-5.1); Total Protein 4.8 g/dL (6.4-8.9)
[2020-11-23] MEDS: Artificial Tears SOLN 15 ML BOTTLE BOTH EYES SCH ×3 (05:01→21:02)
[2020-11-23 06:22] LABS: Ferritin > 1500 ng/mL (10-120)
[2020-11-23] MEDS: Apixaban 5 MG TABLET PO SCH ×2 (07:54→20:57)
[2020-11-23] MEDS: Metoprolol XL (24 HR) Succ 25 MG TAB.ER.24H PO SCH ×2 (07:57→20:57)
[2020-11-23] MEDS: GuaiFENesin/Dextromethorphan TABLET PO SCH ×2 (07:57→20:58)
[2020-11-23] MEDS: Cholecalciferol (D-3) 1,000 UNIT (25MCG) TABLET PO SCH (07:57)
[2020-11-23] MEDS: DilTIAZem SR (12hr) 60 MG CAP.ER.12H PO SCH ×2 (07:57→20:58)
[2020-11-23] MEDS: Chlorhexidine Rinse 15 ML MOUTHWASH MM SCH ×2 (07:57→21:00)
[2020-11-23] MEDS: Aspirin Enteric Coated 81 MG Tablet PO SCH (07:57)
[2020-11-23] MEDS: Multivit/Ca/Min/Fe/FA 1 TAB TABLET PO SCH (07:57)
[2020-11-23] MEDS ORDERED: *HR* Enoxaparin 60 MG/0.6 ML SYRINGE SQ SCH (08:45)
[2020-11-23] MEDS ORDERED: Morphine Sulfate 2 MG/ML SYRINGE IVP PRN (10:39)
[2020-11-23] MEDS ORDERED: *HR* LORazepam 2 MG/ML VIAL IVP PRN (10:39)
[2020-11-23] MEDS: Insulin LISPRO 300 UNITS/3 ML VIAL SUBQ SCH ×5 (10:49→21:02)
[2020-11-23] MEDS: Magic Mouthwash 10 ML UD Cup PO SCH ×2 (12:28→18:00)
[2020-11-23] MEDS ORDERED: Atropine 1% Opth Drops 100 DROP/5 ML BOTTLE SL PRN (13:43)
[2020-11-23] MEDS ORDERED: Scopolamine Patch 1.5 MG PATCH.TD72 TD SCH (13:45)
[2020-11-24] MEDS: Levalbuterol 1 PUFF INHALER IH SCH ×4 (03:32→21:11)
[2020-11-24] MEDS: Insulin LISPRO 300 UNITS/3 ML VIAL SUBQ SCH ×4 (08:41→21:08)
[2020-11-24] MEDS: DilTIAZem SR (12hr) 60 MG CAP.ER.12H PO SCH ×2 (08:45→21:08)
[2020-11-24] MEDS: Metoprolol XL (24 HR) Succ 25 MG TAB.ER.24H PO SCH ×2 (08:45→21:07)
[2020-11-24] MEDS: Apixaban 5 MG TABLET PO SCH ×2 (08:46→21:07)
[2020-11-24] MEDS: Multivit/Ca/Min/Fe/FA 1 TAB TABLET PO SCH (08:46)
[2020-11-24] MEDS: Aspirin Enteric Coated 81 MG Tablet PO SCH (08:46)
[2020-11-24] MEDS: Cholecalciferol (D-3) 1,000 UNIT (25MCG) TABLET PO SCH (08:46)
[2020-11-24] MEDS: GuaiFENesin/Dextromethorphan TABLET PO SCH ×2 (08:46→21:08)
[2020-11-24] MEDS: Artificial Tears SOLN 15 ML BOTTLE BOTH EYES SCH ×2 (08:47→21:09)
[2020-11-24] MEDS: Chlorhexidine Rinse 15 ML MOUTHWASH MM SCH ×2 (08:47→21:15)
[2020-11-24] MEDS ORDERED: *HR* LORazepam 2 MG/ML VIAL IVP PRN (11:33)
[2020-11-24] MEDS: Magic Mouthwash 10 ML UD Cup PO SCH ×3 (12:38→16:08)
[2020-11-24 15:35] LABS: Red Cell Distribution Width 14.6 % (11.5-14.5); Segmented Neutrophils % 92.2 %
[2020-11-24 15:37] LABS: Basophils % 0.1 %; Eosinophils # 0.3 K/mcL (0.0-0.6); Eosinophils % 1.1 %; Hemoglobin 10.9 g/dL (11.5-15.4); Immature Granulocytes % 0.8 % (0-4); Immature Platelets 12.4 % (1.1-6.1); Lymphocytes # 0.5 K/mcL (0.6-4.6); Lymphocytes % 1.8 %; Mean Corpuscular HGB Conc 32.1 g/dL (31.6-35.5); Mean Corpuscular Hemoglobin 27.9 pg (28.0-33.3); Mean Corpuscular Volume 87.2 fL (83.0-100.0); Mean Platelet Volume 13.3 fL (9.4-12.4); Monocytes # 1.1 K/mcL (0.0-1.3); Neutrophils # 24.7 K/mcL (1.6-8.9); Platelet Count 172 K/mcL (140-400); White Blood Count 26.8 K/mcL (4.3-11.1)
[2020-11-24 16:08] LABS: Albumin 2.1 g/dL (3.5-5.7); Albumin/Globulin Ratio 0.8 (1.1-2.2); Bilirubin,Total 0.8 mg/dL (0.3-1.0); Calcium 7.6 mg/dL (8.6-10.3); Globulin 2.6 g/dL (2.4-3.5); Potassium 4.3 mEq/L (3.5-5.1); Total Protein 4.7 g/dL (6.4-8.9)
[2020-11-24 17:55] LABS: Platelet Estimate Normal (Normal)
[2020-11-25 02:04] LABS: Basophils % 0.1 %; Immature Granulocytes % 0.9 % (0-4); Monocytes % 3.4 %; Red Cell Distribution Width 14.6 % (11.5-14.5)
[2020-11-25 02:06] LABS: Eosinophils # 0.2 K/mcL (0.0-0.6); Eosinophils % 0.6 %; Hematocrit 35.1 % (35.3-44.9); Hemoglobin 11.4 g/dL (11.5-15.4); Immature Platelets 10.7 % (1.1-6.1); Lymphocytes # 0.4 K/mcL (0.6-4.6); Lymphocytes % 1.3 %; Mean Corpuscular HGB Conc 32.5 g/dL (31.6-35.5); Mean Corpuscular Hemoglobin 28.3 pg (28.0-33.3); Mean Corpuscular Volume 87.1 fL (83.0-100.0); Mean Platelet Volume 12.9 fL (9.4-12.4); Monocytes # 1.1 K/mcL (0.0-1.3); Neutrophils # 30.1 K/mcL (1.6-8.9); Platelet Count 179 K/mcL (140-400); Red Blood Count 4.03 M/mcL (3.82-4.97); Segmented Neutrophils % 93.7 %
[2020-11-25 02:13] LABS: Fibrinogen 578 mg/dL (169-393); White Blood Count 32.1 K/mcL (4.3-11.1)
[2020-11-25 02:14] LABS: D-Dimer 2361 ng/mLFEU (0-500)
[2020-11-25 02:32] LABS: Albumin 2.3 g/dL (3.5-5.7); Albumin/Globulin Ratio 0.9 (1.1-2.2); Bilirubin,Total 0.8 mg/dL (0.3-1.0); Globulin 2.7 g/dL (2.4-3.5); Potassium 4.5 mEq/L (3.5-5.1)
[2020-11-25 02:39] LABS: Platelet Estimate Normal (Normal)
[2020-11-25] MEDS: Levalbuterol 1 PUFF INHALER IH SCH ×4 (03:44→20:20)
[2020-11-25] MEDS: Magic Mouthwash 10 ML UD Cup PO SCH ×3 (08:00→17:51)
[2020-11-25] MEDS: Insulin LISPRO 300 UNITS/3 ML VIAL SUBQ SCH ×4 (08:00→21:40)
[2020-11-25] MEDS ORDERED: *HR* Heparin 5,000 UNIT/ML VIAL IVP PRN ×2 (11:59)
[2020-11-25] MEDS ORDERED: *HR* Heparin 5,000 UNIT/ML VIAL IVP ONE (11:59)
[2020-11-25] MEDS ORDERED: Heparin 25,000UNIT/250ML 1/2NS 25,000 UNIT/250 ML IV.SOLN IVC SCH ×2 (12:00→12:07)
[2020-11-25] MEDS: Aspirin Enteric Coated 81 MG Tablet PO SCH (12:45)
[2020-11-25] MEDS: GuaiFENesin/Dextromethorphan TABLET PO SCH ×2 (12:46→21:40)
[2020-11-25] MEDS: DilTIAZem SR (12hr) 60 MG CAP.ER.12H PO SCH ×2 (12:46→20:05)
[2020-11-25] MEDS: Multivit/Ca/Min/Fe/FA 1 TAB TABLET PO SCH (12:46)
[2020-11-25] MEDS: Cholecalciferol (D-3) 1,000 UNIT (25MCG) TABLET PO SCH (12:46)
[2020-11-25] MEDS: Chlorhexidine Rinse 15 ML MOUTHWASH MM SCH ×2 (12:46→20:00)
[2020-11-25] MEDS: Pantoprazole 40 MG VIAL IVP SCH (13:08)
[2020-11-25] MEDS: Cefepime HCl 2,000 MG in Water for inj. (sterile) 20 ML IVP SCH (13:08)
[2020-11-25] MEDS: *HR* Metoprolol 5 MG/5 ML VIAL IVP SCH ×3 (13:09→23:04)
[2020-11-25] MEDS: Artificial Tears SOLN 15 ML BOTTLE BOTH EYES SCH ×2 (13:27→23:01)
[2020-11-25 14:18] LABS: Mean Platelet Volume 13.1 fL (9.4-12.4)
[2020-11-25 14:20] LABS: Hematocrit 36.7 % (35.3-44.9); Hemoglobin 11.8 g/dL (11.5-15.4); Immature Platelets 11.8 % (1.1-6.1); Mean Corpuscular HGB Conc 32.2 g/dL (31.6-35.5); Mean Corpuscular Hemoglobin 28.1 pg (28.0-33.3); Mean Corpuscular Volume 87.4 fL (83.0-100.0); Red Blood Count 4.2 M/mcL (3.82-4.97); Red Cell Distribution Width 14.5 % (11.5-14.5)
[2020-11-25 14:22] LABS: White Blood Count 32.4 K/mcL (4.3-11.1)
[2020-11-25 14:28] LABS: INR 1.7; Prothrombin Time 18.6 Seconds (9.4-12.1)
[2020-11-25 14:30] LABS: Activated Partial Thrombo Time 28.5 Seconds (26.0-36.0)
[2020-11-25 14:32] LABS: Bacteria,Urine Few per hpf (None-Few); Bilirubin,Urine Negative (Negative); Blood,Urine Large (Negative); Budding Yeast,Urine Few per hpf (None Seen); Clarity,Urine Turbid (Clear); Color,Urine Light-Orange (Yellow); Glucose,Urine (UA) Normal (Normal); Ketones,Urine 10 mg/dL (Negative); Leukocyte Esterase,Urine Large (Negative); Mucus,Urine Few per lpf (None-Few); Nitrite,Urine Negative (Negative); PH,Urine 5.5 pH Units (5.0-8.0); Protein,Urine 50 mg/dL (Neg-Trace); RBC,Urine TNTC per hpf (0-3); Specific Gravity,Urine 1.019 (1.010-1.025); Urobilinogen,Urine Normal (Normal); WBC,Urine TNTC per hpf (0-3)
[2020-11-25 14:38] LABS: Heparin anti-factor XA UFH 1.91 IU/mL (0.30-0.70)
[2020-11-25] MEDS: Morphine Sulfate 2 MG/ML SYRINGE IVP PRN ×2 (15:30→21:01)
[2020-11-25] MEDS ORDERED: *HR* Metoprolol 5 MG/5 ML VIAL IVP ONE (21:35)
[2020-11-26] MEDS ORDERED: Morphine Sulfate 2 MG/ML SYRINGE IVP ONE (00:05)
[2020-11-26] MEDS: Cefepime HCl 2,000 MG in Water for inj. (sterile) 20 ML IVP SCH (01:21)
[2020-11-26] MEDS: DilTIAZem 50 MG/50 ML IV.SOLN IVC SCH ×3 (03:22→10:10)
[2020-11-26 04:48] LABS: Basophils % 0.2 %; Eosinophils % 0.1 %; Hemoglobin 11.8 g/dL (11.5-15.4); Mean Platelet Volume 13.5 fL (9.4-12.4)
[2020-11-26 04:50] LABS: Basophils # 0.1 K/mcL (0.0-0.2); Eosinophils # 0.1 K/mcL (0.0-0.6); Hematocrit 36.9 % (35.3-44.9); Immature Granulocytes % 2.4 % (0-4); Lymphocytes # 0.3 K/mcL (0.6-4.6); Lymphocytes % 0.6 %; Mean Corpuscular Hemoglobin 28.6 pg (28.0-33.3); Mean Corpuscular Volume 89.6 fL (83.0-100.0); Monocytes # 1.2 K/mcL (0.0-1.3); Monocytes % 2.6 %; Neutrophils # 44.2 K/mcL (1.6-8.9); Platelet Count 177 K/mcL (140-400); Red Blood Count 4.12 M/mcL (3.82-4.97); Red Cell Distribution Width 14.9 % (11.5-14.5); Segmented Neutrophils % 94.1 %
[2020-11-26] MEDS: Levalbuterol 1 PUFF INHALER IH SCH ×2 (04:56→07:43)
[2020-11-26 05:01] LABS: Albumin 2.4 g/dL (3.5-5.7); Albumin/Globulin Ratio 0.8 (1.1-2.2); Bilirubin,Total 0.9 mg/dL (0.3-1.0); Potassium 4.5 mEq/L (3.5-5.1); Total Protein 5.4 g/dL (6.4-8.9)
[2020-11-26] MEDS: *HR* Metoprolol 5 MG/5 ML VIAL IVP SCH (05:27)
[2020-11-26 06:34] VITALS: BP 118/52; PULSE 155; TEMP 97.3; O2SAT 82
[2020-11-26] MEDS ORDERED: 0.9 % Sodium Chloride 500 ML IVC ONE (07:31)
[2020-11-26] MEDS: Chlorhexidine Rinse 15 ML MOUTHWASH MM SCH (07:32)
[2020-11-26] MEDS: Magic Mouthwash 10 ML UD Cup PO SCH ×2 (07:32→10:44)
[2020-11-26] MEDS: DilTIAZem SR (12hr) 60 MG CAP.ER.12H PO SCH (07:32)
[2020-11-26] MEDS: Aspirin Enteric Coated 81 MG Tablet PO SCH (07:32)
[2020-11-26] MEDS: Cholecalciferol (D-3) 1,000 UNIT (25MCG) TABLET PO SCH (07:33)
[2020-11-26] MEDS: Multivit/Ca/Min/Fe/FA 1 TAB TABLET PO SCH (07:33)
[2020-11-26] MEDS: GuaiFENesin/Dextromethorphan TABLET PO SCH (07:33)
[2020-11-26] MEDS ORDERED: Levothyroxine Sodium 100 MCG VIAL IVP SCH (09:00)
[2020-11-26] MEDS: Insulin LISPRO 300 UNITS/3 ML VIAL SUBQ SCH (09:01)
[2020-11-26] MEDS: Morphine Sulfate 2 MG/ML SYRINGE IVP PRN (09:03)
[2020-11-26] MEDS: Pantoprazole 40 MG VIAL IVP SCH (09:10)
[2020-11-26] MEDS: Artificial Tears SOLN 15 ML BOTTLE BOTH EYES SCH (09:11)
[2020-11-26] MEDS ORDERED: Morphine Sulfate 2 MG/ML SYRINGE IVP PRN (10:35)
[2020-11-26] MEDS ORDERED: *HR* LORazepam 2 MG/ML VIAL IVP PRN (10:35)
[2020-11-26] MEDS ORDERED: Haloperidol Lactate 5 MG/ML VIAL IVP PRN (10:35)
[2020-12-01 12:08] LABS: Acinetobacter baumannii by PCR Not Detected (Not Detect); Candida albicans by PCR Not Detected (Not Detect); Candida glabrata by PCR Not Detected (Not Detect); Candida krusei by PCR Not Detected (Not Detect); Candida parapsilosis by PCR Not Detected (Not Detect); Candida tropicalis by PCR Not Detected (Not Detect); Enterobacter cloacae Cmplx PCR Not Detected (Not Detect); Enterobacteriaceae by PCR Not Detected (Not Detect); Enterococcus by PCR Not Detected (Not Detect); Escherichia coli by PCR Not Detected (Not Detect); Klebsiella oxytoca by PCR Not Detected (Not Detect); Klebsiella pneumoniae by PCR Not Detected (Not Detect); Proteus by PCR Not Detected (Not Detect); Pseudomonas aeruginosa by PCR Not Detected (Not Detect); Serratia marcescens by PCR Not Detected (Not Detect); Staphylococcus aureus by PCR Not Detected (Not Detect); Staphylococcus by PCR Not Detected (Not Detect); Streptococcus agalactiae(B)PCR Not Detected (Not Detect); Streptococcus by PCR Not Detected (Not Detect); Streptococcus pneumoniae PCR Not Detected (Not Detect); Streptococcus pyogenes (A) PCR Not Detected (Not Detect)
== END 2020-11-26 14:39 | disposition expired | DRG 871 ==
LOC: EMEROOARM 13:29 → SUATTDRO 20:22 → 2ANU 20:22 → 2NENU 11-11 20:24
PROVIDERS: ADMIT Internal Medicine; ATTEND Family Medicine